=== PATIENT | female | born 1930 | race Caucasian/White ===

== ENCOUNTER 2016-11-01 16:30 | Inpatient (IN) | payer MEDICARE, OTHER ==
[~2016-11-01] VITALS: Ht 144.8 cm; Wt 40.5 kg
[2016-11-01 16:56] VITALS: BP 155/69; PULSE 72; RESP 16; TEMP 98.3; O2SAT 96
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
[2016-11-01 18:26] LABS: AUTOMATED NEUTROPHIL # 4.7 TH/MM3 (1.8-7.7); BASOPHIL % 0.5 % (0.0-2.0); EOSINOPHIL % 0.5 % (0.0-4.0); HEMATOCRIT 38.5 % (35.0-46.0); HEMO FLAGS DIFF FINAL; LYMPH % 27.8 % (9.0-44.0); MEAN CORPUSCULAR HEMOGLOBIN 27.7 PG (27.0-34.0); MONO % 6.3 % (0.0-8.0); NEUT % 64.9 % (16.0-70.0); PLATELET COUNT 190 TH/MM3 (150-450); RED BLOOD COUNT 4.58 MIL/MM3 (4.00-5.30); RED CELL DISTRIBUTION WIDTH 15.1 % (11.6-17.2); WHITE BLOOD COUNT 7.2 TH/MM3 (4.0-11.0)
[2016-11-01 18:50] LABS: ALKALINE PHOSPHATASE 135 U/L (45-117); ALT (GPT) 20 U/L (10-53); ANION GAP 8 MEQ/L (5-15); AST (GOT) 14 U/L (15-37); BICARBONATE 26.7 MEQ/L (21.0-32.0); BLOOD UREA NITROGEN 24 MG/DL (7-18); CHLORIDE 106 MEQ/L (98-107); GLOMERULAR FILTRATION RATE 85 ML/MIN (>89); POTASSIUM 3.7 MEQ/L (3.5-5.1); SODIUM (NA) 141 MEQ/L (136-145); TOTAL BILIRUBIN ADULT 0.2 MG/DL (0.2-1.0)
[2016-11-01 19:25] LABS: AMPHETAMINE, URINE NEG (NEG); BARBITURATES, URINE NEG (NEG); COCAINE, URINE NEG (NEG)
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
[2016-11-01] MEDS ORDERED: LEVO100T5 PO (21:39)
[2016-11-01] MEDS ORDERED: LORA-392 PO (21:39)
[2016-11-01] MEDS ORDERED: SENN8.6C PO (21:39)
[2016-11-01] MEDS ORDERED: NUED20CA PO (21:39)
[2016-11-01] MEDS ORDERED: SERO50TA PO (21:39)
[2016-11-01 22:00] VITALS: BP 140/75; PULSE 69; RESP 17; O2SAT 99
[2016-11-01 23:03] LABS: BLOOD, URINE NEG (NEG); COMMENT (UR) CULT NOT INDICATED; CULTURE IF INDICATED CULT NOT INDICATED; GLUCOSE,URINE NEG (NEG); HYALINE CAST, URINE 2 /lpf (RARE); KETONE, URINE NEG (NEG); MUCUS URINE FEW /lpf (OCC); NITRITE,URINE NEG (NEG); PH, URINE 5.5 (5.0-8.5); SQUAMOUS EPITHELIAL CELL URINE 1 /hpf (0-5); URINE COLOR YELLOW (YELLW/STRAW)
[2016-11-02 02:00] VITALS: BP 166/72; PULSE 63; RESP 18; O2SAT 95
[2016-11-02 06:00] VITALS: BP 170/90; PULSE 89; RESP 18; O2SAT 99
[2016-11-02 10:00] VITALS: BP 159/72; PULSE 67; RESP 18; O2SAT 98
[2016-11-02] MEDS ORDERED: ALUMINUM/MAGNESIUM/SIMETH 30 ML CUP PO PRN (14:15)
[2016-11-02] MEDS ORDERED: MAGNESIUM HYDROXIDE SUSP 30 ML CUP PO PRN (14:15)
[2016-11-02] MEDS ORDERED: ACETAMINOPHEN 325 MG TAB PO PRN (14:15)
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
[2016-11-02 15:21] VITALS: BP 158/78; PULSE 77; RESP 18; TEMP 97.7; O2SAT 98
[2016-11-02 16:30] VITALS: BP 147/99; PULSE 81; RESP 18; O2SAT 94
[2016-11-02 16:50] VITALS: BP 158/78; PULSE 77; RESP 18
[2016-11-02] MEDS ORDERED: LORazepam 2 MG/ML VIAL IM PRN (18:00)
[2016-11-02] MEDS ORDERED: LORazepam 1 MG TAB PO PRN (18:00)
[2016-11-03 05:28] VITALS: BP 111/60; PULSE 70; RESP 18; TEMP 98.5
[2016-11-03 09:26] LABS: ANION GAP 8 MEQ/L (5-15); BICARBONATE 27.6 MEQ/L (21.0-32.0); BLOOD UREA NITROGEN 16 MG/DL (7-18); CHLORIDE 103 MEQ/L (98-107); GLOMERULAR FILTRATION RATE 95 ML/MIN (>89); HDL CHOLESTEROL 84.8 MG/DL (40.0-60.0); LDL CHOLESTEROL 151 MG/DL (0-99); POTASSIUM 3.2 MEQ/L (3.5-5.1); SODIUM (NA) 139 MEQ/L (136-145)
--- NOTE | 2016-11-03 09:33 | HHI.HP ---
Provisional Diagnosis Admission Date Nov 02, 2016 at 14:09 [place] I. 1. Dementia with psychosis [place] II. Deferred [place] V. GAF is 30 presently Certification of Person's Competence To Provide Express and Informed Consent I have personally examined Emily Johnson , a person being served at [facility] on, Nov 03, 2016 09:18. Express and informed consent means consent voluntarily given in writing, by a competent person, after sufficient explanation and disclosure of the subject matter involved to enable the person to make a knowing and willful decision without any element of force, fraud, deceit, duress, or other form of constraint or coercion. This person is 18 years of age or older, is not now known to be incompetent to consent to treatment with a guardian advocate, and does not have a health care surrogate or proxy currently making medical treatment decisions. I have found this person to be one of the following: [] Competent to provide express and informed consent, as defined above, for voluntary admission to this facility and is competent to provide express and informed consent for treatment. He/she has the consistent capacity to make well reasoned, willful, and knowing decisions concerning his or her medical or mental health treatment. The person fully and consistently understands the purpose of the admission for examination/placement and is fully capable of personally exercising all rights assured under [place] [x] Incompetent to provide express and informed consent to voluntary admission, and this is incompetent to provide express and informed consent to treatment. The person must be transferred to involuntary status and a petition for a guardian advocate filed with the Circuit Court. [] Refusing to provide express and informed consent to voluntary admission but is competent to provide express and informed consent for treatment. The person must be discharged or transferred to involuntary status. Form shall be completed within 24 hours of a person's arrival at the receiving facility and filed in the clinical record of each person: 1. Admitted on a voluntary basis 2. Permitted to provide express and informed consent to his/her own treatment 3. Allowed to transfer from involuntary to voluntary status 4. Prior to permitting a person to consent to his or her own treatment after having been previously found incompetent to consent to treatment. History of Present Illness Capacity: Lacks Capacity HPI Ms. Johnson is an 86-year-old female, a resident of [facility], with a history of dementia who presents under a Hanson act from a Dr. Garcia alleging aggressive behavior. There is also notation that Seroquel was being tapered when this agitation occurred, but it is unclear why the Seroquel was being tapered. I reviewed the documentation accompanying the patient from her facility including several nursing notes alleging agitation. I also see that the facility has completed a discharge notice. Reviewing the electronic medical record, I see no prior psychiatric contact within our system. Patient seen and examined. Chart reviewed. Case discussed with nursing staff. Presently, the patient is calm and pleasant. She says "the doctors thought I should come here. Sometimes I get a little agitated but people talk too fast. I care for my mother. She is blind. I get a little annoyed when they push her , and you would too." Cognition is impaired, see full mental status testing below. Denies any issues with mood. Denies any audiovisual hallucinations. I inquire about suicidal or homicidal thoughts, but the patient does not seem to understand the question and just smiles blandly in reply. Patient apparently believed that she was in the ED last night and tells me today that she has been for 6 or 7 years to her and is still trying to conceive. Psychiatric interview is somewhat limited because of patient's degree of cognitive impairment. I am unable to obtain any meaningful past psychiatric, family or chemical dependency history because of patient's degree of cognitive impairment. Regarding her social history, the patient is likely an unreliable historian but tells me that she is high school educated. 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 She is presently to her Sonny. She says that she has no children. I did endeavor to obtain collateral from patient's , Sonny over the phone. I left a voicemail requesting a call back. I also endeavored to obtain collateral from Dr. Garcia to see why the doctor was tapering Seroquel even in the face of worsening agitation. I tried to call to the rehabilitation facility to see if they had any contact information for the doctor. After being transferred around without getting the needed information, I finally left a voicemail requesting they call me back with this information. Review of Systems ROS Limitations: Psychotic, Poor Historian Except as stated in HPI: all other systems reviewed are Neg Past Psych History Psychological trauma history Unable to obtain because of patient's degree of cognitive impairment Violence risk - others (6 mos) Indeterminate. Hanson act alleges agitation. Patient is presently calm and pleasant. Violence risk - self (6 mos) Lower imminent risk. No evidence of any suicidality at play here. Substance Abuse History Drugs/Alcohol past 12 months See above Past Family Social History Coded Allergies: Influenza Virus Vaccine (Verified Allergy, Unknown, 11/01/16) Penicillin (Verified Allergy, Unknown, 11/01/16) Past Medical History Notes from facility indicates a history of pseudobulbar affect, hypothyroidism and both hypo- and hypernatremia. Reported Medications Lorazepam (Ativan)0.5 Mg Tab0.5 Mg PO Q8H PRN (ANXIETY AND/OR AGITATION) Ref 0 11/01/16 Dextromethorphan HBr-Quinidine (Nuedexta 20-10 mg)1 Cap Cap1 Cap PO BID #60 CAP Ref 0 11/01/16 Quetiapine (Seroquel)50 Mg Tab50 Mg PO HS #30 TAB Ref 0 11/01/16 Sennosides (Senna)8.6 Mg Cap8.6 Mg PO HS Ref 0 11/01/16 Levothyroxine 100 Mcg Tco064 Mcg PO DAILY #30 TAB Ref 0 11/01/16 Current Medications Medications (Trade) Dose Ordered Sig/Tera Route Start Time Stop Time Status Last Admin (Tylenol) 650 mg Q4H PRN PO 11/02/16 14:15 (Milk Of Magnesia Liq) 30 ml DAILY PRN PO 11/02/16 14:15 (Mag-Al Plus Susp Liq) 30 ml Q6H PRN PO 11/02/16 14:15 (Ativan) 1 mg Q12H PRN PO 11/02/16 18:00 (Ativan Inj) 1 mg Q12H PRN IM 11/02/16 18:00 Family History See above Social History See above Patient's Strengths (min. 2) In a monitored setting. Verbally fluent. Physical Exam Physical examination completed by ED provider. On my examination today, patient appears to be somewhat thin but otherwise well-developed and in no acute physical distress. No hand tremor, no dystonia, no dyskinesia, no other motor abnormalities noted. Laboratories and vitals signs reviewed: Vital Signs Vital Signs Date Time Temp Pulse Resp B/P Pulse Ox O2 Delivery O2 Flow Rate FiO2 11/03/16 05:28 98.5 70 18 111/60 11/02/16 16:50 Room Air 11/02/16 16:30 94 Lab Results Item Value Date Time White Blood Count 7.2 TH/MM3 11/01/16 1805 Hemoglobin 12.7 GM/DL 11/01/16 180 Platelet Count 190 TH/MM3 11/01/16 1805 Sodium Level 141 MEQ/L 11/01/16 1805 Potassium Level 3.7 MEQ/L 11/01/16 1805 Chloride Level 106 MEQ/L 11/01/16 1805 Carbon Dioxide Level 26.7 MEQ/L 11/01/16 180 Blood Urea Nitrogen 24 MG/DL H 11/01/16 1805 Creatinine 0.66 MG/DL 11/01/16 1805 Random Glucose 95 MG/DL 11/01/16 1805 Aspartate Amino Transf (AST/SGOT) 14 U/L L 11/01/16 1805 Alanine Aminotransferase (ALT/SGPT) 20 U/L 11/01/16 1805 Alkaline Phosphatase 135 U/L H 11/01/16 1805 Urine toxicology negative. Urinalysis bland. Last Impressions Hand X-Ray 11/01/16 0000 Signed Impressions: Service Date/Time: Tuesday, November 01, 2016 19:35 - CONCLUSION: Degenerative changes, negative for acute fracture. Matt Eng MD FACR Mental Status Examination Patient is in hospital [facility]. She is somewhat disheveled but appears to be maintaining basic hygiene. She is awake and alert and oriented to person only. She believes that she is in [place] and believes that this is located in [place]. She is not sure of the date. She is only able to register 1 of 3 items. I give the patient a list including the word apple and she repeats this list back as "apple turnover." She is unable to name 2 items. She is unable to repeat a phrase. She cannot tell me who the president is. Her recall is 0 out of 3 at 3 minutes. No motor abnormalities noted. Speech is within normal limits for rate, tone and volume. Language and fund of knowledge seems reduced. Mood is fair and affect is full and reactive. Thought process tangential. Associations somewhat loose. Delusions related to possibility of present, and the patient apparently thought that she was last night. No other delusional material currently. Patient noncommittal regarding suicidal or homicidal ideation. Insight and judgment are presently poor. 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 Patient presents with cognitive impairment and delusional material, and I suspect that she is experiencing a dementia with psychosis. There is no evidence of UTI or other medical cause for patient's psychosis. Patient requires psychiatric hospitalization at this time for safety, observation and stabilization. Admit inpatient. Involuntary status. I've completed first opinion. Consult for second opinion. Request healthcare surrogate and guardian advocate. Check TFTs in am. Most recently, it appears patient was receiving Seroquel 50mg qHS, down from 50mg BID. Again, rationale for taper is unclear. I will continue Seroquel 50 mg at bedtime, but to consider selecting a different agent. Haldol as needed for agitation, Benadryl as needed for EPS, melatonin as needed for sleep. Continue Synthroid. Nuedexta is not stocked in our pharmacy, I will ask RN to have facility send over. PT eval with falls precautions. Vitals every shift. Counselor to see. Disposition planning. Estimated length of stay : Given the apparent need for new placement, optimistically 4-6 weeks. Discharge Planning Patient will apparently require new placement once psychiatrically stabilized. Request HC Surrog/Guard Advoc?: Yes Mayo Ambriz MD Nov 03, 2016 09:33
[2016-11-03] MEDS ORDERED: NUEDEXTA PO SCH (09:45)
[2016-11-03] MEDS ORDERED: diphenhydrAMINE HCL 50 MG/ML VIAL IM PRN (09:45)
[2016-11-03] MEDS ORDERED: POTASSIUM CHLORIDE 10 MEQ CONTROLLED RELEASE TAB PO ONE (09:45)
--- NOTE | 2016-11-03 13:26 | PD.CONS ---
Provisional Diagnosis Admission Date Nov 02, 2016 at 14:09 [place] I. 1. Dementia with psychosis [place] II. Deferred [place] V. GAF is 30 presently History of Present Illness Service Psychiatry Consult Requested By Attending Suhas. Reason for Consult Second opinion petition [place] act Primary Care Physician Unknown HPI Ms. Johnson is an 86-year-old female, a resident of [facility], with a history of dementia who presents under a Hanson act from a Dr. Garcia alleging aggressive behavior. There is also notation that Seroquel was being tapered when this agitation occurred, but it is unclear why the Seroquel was being tapered. I reviewed the documentation accompanying the patient from her facility including several nursing notes alleging agitation. I also see that the facility has completed a discharge notice. Reviewing the electronic medical record, I see no prior psychiatric contact within our system. Patient seen and examined. Chart reviewed. Case discussed with nursing staff. Presently, the patient is calm and pleasant. She says "the doctors thought I should come here. Sometimes I get a little agitated but people talk too fast. I care for my mother. She is blind. I get a little annoyed when they push her , and you would too." Cognition is impaired, see full mental status testing below. Denies any issues with mood. Denies any audiovisual hallucinations. I inquire about suicidal or homicidal thoughts, but the patient does not seem to understand the question and just smiles blandly in reply. Patient apparently believed that she was in the ED last night and tells me today that she has been for 6 or 7 years to her and is still trying to conceive. Psychiatric interview is somewhat limited because of patient's degree of cognitive impairment. I am unable to obtain any meaningful past psychiatric, family or chemical dependency history because of patient's degree of cognitive impairment. Regarding her social history, the patient is likely an unreliable historian but tells me that she is high school educated. 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 She is presently to her Sonny. She says that she has no children. I did endeavor to obtain collateral from patient's , Sonny over the phone. I left a voicemail requesting a call back. I also endeavored to obtain collateral from Dr. Garcia to see why the doctor was tapering Seroquel even in the face of worsening agitation. I tried to call to the rehabilitation facility to see if they had any contact information for the doctor. After being transferred around without getting the needed information, I finally left a voicemail requesting they call me back with this information. 11/03/16 Patient is a 86-year-old female admitted to Dr. Burnett service under the Hanson act. Patient seen on unit floor staff, patient diffusely confused to place time and situation though pleasant with no significant behavior problems at this time. Dr. Ambriz #first opinion petition supporting Hanson act. I agree. Patient does meet criteria for involuntary psychiatric hospitalization under the Hanson act. Thus I will cosign second opinion petition supporting Hanson act Past Family Social History Coded Allergies: Influenza Virus Vaccine (Verified Allergy, Unknown, 11/01/16) Penicillin (Verified Allergy, Unknown, 11/01/16) Reported Medications Lorazepam (Ativan)0.5 Mg Tab0.5 Mg PO Q8H PRN (ANXIETY AND/OR AGITATION) Ref 0 11/01/16 Dextromethorphan HBr-Quinidine (Nuedexta 20-10 mg)1 Cap Cap1 Cap PO BID #60 CAP Ref 0 11/01/16 Quetiapine (Seroquel)50 Mg Tab50 Mg PO HS #30 TAB Ref 0 11/01/16 Sennosides (Senna)8.6 Mg Cap8.6 Mg PO HS Ref 0 11/01/16 Levothyroxine 100 Mcg Sjq290 Mcg PO DAILY #30 TAB Ref 0 11/01/16 Current Medications Medications (Trade) Dose Ordered Sig/Tera Route Start Time Stop Time Status Last Admin (Tylenol) 650 mg Q4H PRN PO 11/02/16 14:15 (Milk Of Magnesia Liq) 30 ml DAILY PRN PO 11/02/16 14:15 (Mag-Al Plus Susp Liq) 30 ml Q6H PRN PO 11/02/16 14:15 (Synthroid) 100 mcg DAILY@0600 PO 11/04/16 06:00 (Radha-Colace) 2 tab DAILY PO 11/04/16 09:00 Patient Own Medication Nuedexta 20/10mg capsu... Q12HR PO 11/03/16 09:45 Hold (Haldol Inj) 1 mg Q8H PRN IM 11/03/16 09:45 (Melatonin) 5 mg HS PRN PO 11/03/16 09:45 (Benadryl) 25 mg Q6H PRN PO 11/03/16 09:45 (Benadryl Inj) 25 mg Q6H PRN IM 11/03/16 09:45 (SEROquel) 50 mg HS PO 11/03/16 21:00 Patient's Strengths (min. 2) In a monitored setting. Verbally fluent. Physical Exam Vital Signs Vital Signs Date Time Temp Pulse Resp B/P Pulse Ox O2 Delivery O2 Flow Rate FiO2 11/03/16 05:28 98.5 70 18 111/60 11/02/16 16:50 Room Air 11/02/16 16:30 94 Mental Status Examination Pleasantly diffusely confused white female Speech: Slow Orientation: Person Memory: Impaired (describe) Thought Process: Loose Association Thought Content: Other (diffusely confused) Language Czech Fund of Knowledge Poor Hallucination Type: None (denies) Attention and Concentration: Other (poor) Suicidal Ideation: No Previous Suicide Attempts: No Homicidal Ideation: No Previous Homicide Attempts: No (denies) Insight: Poor Judgment: Poor Affect: Other (decreased range intensity) Mood: Euthymic (to somewhat restricted) Motor Activity: Normal gait Assessment & Plan Problem List: (1) 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
[2016-11-03] MEDS: HALOPERIDOL LACTATE 5 MG/ML AMP IM PRN (13:45)
[2016-11-03 16:05] LABS: HEMOGLOBIN A1a 1.4 %; HEMOGLOBIN A1b 1.6 %; HEMOGLOBIN LA1C 1.7 %; HEMOGLOBIN P3 3.7 %
[2016-11-03 18:00] VITALS: BP 159/72; PULSE 90; RESP 18; TEMP 98.7; O2SAT 94
[2016-11-03] MEDS ORDERED: QUEtiapine FUMARATE 25 MG TAB PO SCH ×2 (21:00)
[2016-11-04 06:00] VITALS: BP 175/73; PULSE 63; RESP 18; TEMP 97.3
[2016-11-04] MEDS: LEVOTHYROXINE SODIUM 100 MCG TAB PO SCH (06:12)
[2016-11-04 08:48] LABS: POTASSIUM 3.8 MEQ/L (3.5-5.1)
[2016-11-04] MEDS: DOCUSATE SODIUM 50 MG/SENNA 8.6 MG TAB PO SCH (08:53)
[2016-11-04 09:03] LABS: FREE T4 0.91 NG/DL (0.76-1.46); MAGNESIUM 2.4 MG/DL (1.5-2.5)
--- NOTE | 2016-11-04 10:25 | HHI.PYPN ---
Subjective Remarks Patient seen and examined. Chart reviewed. I see that the patient refused her scheduled Seroquel last evening and received a Haldol PRN yesterday in the early afternoon for hitting at staff. Case discussed with RN who reports patient has been no behavioral problem so far today. On my examination today, patient is sitting calmly in the day area. She is doing a puzzle with a [employer]. She is oriented to person only. She has some mild cogwheeling but otherwise no evident side effects from medications. Review of Systems ROS Limitations: Poor Historian Except as stated in HPI: all other systems reviewed are Neg (cognitive impairment limits ROS) Objective Alert: Yes [place]: Person Mood: Calm Affect: Euthymic Memory Intact: Comment (remains impaired) Hallucinations: Other (None reported) Delusions: No Delusion Type: Other (None elicited today) Suicidal: Ideation (No SI) Homicidal: Ideation (No HI) Insight/Judgment Poor Remarks Except as above, no motoric abnormalities noted. Thought process disorganized consistent with dementia. Grooming and hygiene fair but requiring some staff assist. Labs Test 11/04/16 07:43 Potassium Level 3.8 MEQ/L Magnesium Level 2.4 MG/DL Free Thyroxine 0.91 NG/DL Thyroid Stimulating Hormone 12.600 uIU/ML 3rd Gen Labs reviewed. TSH is elevated but free T4 is within normal limits. Potassium and magnesium level are within normal limits. Vitals/IOs Vital Signs Date Time Temp Pulse Resp B/P Pulse Ox O2 Delivery O2 Flow Rate FiO2 11/04/16 06:00 97.3 63 18 175/73 11/03/16 18:00 94 11/02/16 16:50 Room Air Intake and Output 11/03/16 11/03/16 11/04/16 08:00 16:00 00:00 Intake Total 0 ml 240 ml 360 ml Balance 0 ml 240 ml 360 ml Assessment & Plan Problem List: (1) Senile dementia with psychosis ICD Code: F02.81 Assessment & Plan Discontinue Seroquel and replace with Haldol 0.5 mg twice daily PO/IM. Patient has Benadryl available as needed if she should experience significant EPS. Continue Synthroid as ordered as free T4 is within normal limits. Continue to monitor on the inpatient unit. Continue other medications and care as ordered. Justification for Cont. Inpt. Some impairment in self-care. Impairment in reality construction as a consequence of her dementia. Medication changes in process. High risk for decompensation in a less restrictive environment. Discharge Planning Patient will require a new placement. Request HC Surrog/Guard Advoc?: Yes Mayo Ambriz MD Nov 04, 2016 10:25
[2016-11-04] MEDS ORDERED: HALOPERIDOL LACTATE 5 MG/ML AMP IM PRN (10:30)
[2016-11-04 19:22] VITALS: BP 153/71; PULSE 72; RESP 16; TEMP 98.2
[2016-11-04] MEDS: HALOPERIDOL 0.5 MG TAB PO SCH (21:24)
[2016-11-04] MEDS: MELATONIN 5 MG TAB PO PRN (21:24)
[2016-11-04] MEDS: diphenhydrAMINE HCL 25 MG CAP PO PRN (21:24)
[2016-11-05] MEDS: LEVOTHYROXINE SODIUM 100 MCG TAB PO SCH ×2 (06:00→06:01)
[2016-11-05 06:14] VITALS: BP 167/69; PULSE 67; RESP 17; TEMP 97.6; O2SAT 96
[2016-11-05] MEDS: DOCUSATE SODIUM 50 MG/SENNA 8.6 MG TAB PO SCH (09:55)
[2016-11-05] MEDS: HALOPERIDOL 0.5 MG TAB PO SCH ×2 (09:55→21:00)
--- NOTE | 2016-11-05 13:45 | HHI.PYPN ---
Subjective Remarks Patient seen and examined. Chart reviewed. Case discussed with nursing staff who reports patient has continued to articulate delusions of needing to care for her mother. The patient repeats some of this material to me and also mentions something about babies. She remains quite confused and is oriented to person only. Affect seems euthymic. No evident side effects from medications. Review of Systems ROS Limitations: Poor Historian Except as stated in HPI: all other systems reviewed are Neg (ROS limited because of cognitive impairment) Objective Alert: Yes [place]: Person (person only) Mood: Calm Affect: Euthymic Memory Intact: Comment (markedly impaired) Hallucinations: Other (None reported) Delusions: Yes Delusion Type: Other (as noted above) Suicidal: Ideation (No SI) Homicidal: Ideation (No HI) Insight/Judgment Poor Remarks No abnormal motor movements noted. Thought process disorganized consistent with dementia diagnosis. Speech rambling. Requires assistance with grooming and hygiene. Labs Labs reviewed. Vitals/IOs Vital Signs Date Time Temp Pulse Resp B/P Pulse Ox O2 Delivery O2 Flow Rate FiO2 11/05/16 06:14 97.6 67 17 167/69 96 11/02/16 16:50 Room Air Intake and Output 11/04/16 11/04/16 11/05/16 08:00 16:00 00:00 Intake Total 420 ml Balance 420 ml Assessment & Plan Problem List: (1) Senile dementia with psychosis ICD Code: F02.81 (2) HTN (hypertension) ICD Code: I10 Assessment & Plan Titrate Haldol to 0.75 mg twice daily to target psychosis. Blood pressures remain fairly consistently elevated; I will add lisinopril 5 mg daily with blood pressure parameters. Continue to monitor on the inpatient psychiatric unit. Continue other medications include care as ordered. Justification for Cont. Inpt. Impairment in reality construction. Medication changes in process. Discharge Planning Counselor informs me that there is a possibility that the patient may be accepted back to her originating facility even though discharge paperwork was completed. Patient will require placement regardless, either at her existing facility or a new facility. Request HC Surrog/Guard Advoc?: Yes Mayo Ambriz MD Nov 05, 2016 13:45
[2016-11-05] MEDS ORDERED: HALOPERIDOL LACTATE 5 MG/ML AMP IM PRN (16:30)
[2016-11-05 18:00] VITALS: BP 152/72; PULSE 73; RESP 18; TEMP 97.9; O2SAT 97
[2016-11-06] MEDS: LEVOTHYROXINE SODIUM 100 MCG TAB PO SCH (06:00)
[2016-11-06] MEDS: LISINOPRIL 5 MG TAB PO SCH (09:04)
[2016-11-06] MEDS: HALOPERIDOL 0.5 MG TAB PO SCH ×2 (09:05→21:46)
[2016-11-06] MEDS: PILL SPLITTER OTHER PRN (09:05)
[2016-11-06] MEDS: DOCUSATE SODIUM 50 MG/SENNA 8.6 MG TAB PO SCH (09:05)
--- NOTE | 2016-11-06 18:25 | HHI.PYPN ---
Subjective Remarks Pt seen and discussed with staff. She has been irritable today. She states that she is looking for her father and gives MD the middle finger. She is compliant with medication. No SI/HI Objective Alert: Yes [place]: Person (person only) Mood: Angry, Calm Affect: Other (irritable) Memory Intact: Comment (markedly impaired) Hallucinations: Other (None reported) Delusions: Yes Delusion Type: Other (belives father is alive) Suicidal: Ideation (No SI) Homicidal: Ideation (No HI) Insight/Judgment poor Vitals/IOs Vital Signs Date Time Temp Pulse Resp B/P Pulse Ox O2 Delivery O2 Flow Rate FiO2 11/05/16 18:00 97.9 73 18 152/72 97 11/02/16 16:50 Room Air Intake and Output 11/05/16 11/05/16 11/06/16 08:00 16:00 00:00 Intake Total 0 ml 960 ml 480 ml Output Total 1 ml Balance -1 ml 960 ml 480 ml Assessment & Plan Problem List: (1) Senile dementia with psychosis ICD Code: F02.81 Assessment & Plan Continue current tx plan. Estimated LOS: days Justification for Cont. Inpt. impairments in reality construction, medication adjustments Request HC Surrog/Guard Advoc?: Yes Liz Rosado MD Nov 06, 2016 18:24
[2016-11-06 20:00] VITALS: BP 136/97; PULSE 71; TEMP 98.2; O2SAT 97
[2016-11-07 05:35] VITALS: BP 129/67; PULSE 69; RESP 16; TEMP 98.2
[2016-11-07] MEDS: LEVOTHYROXINE SODIUM 100 MCG TAB PO SCH ×2 (05:56→06:00)
[2016-11-07] MEDS: LISINOPRIL 5 MG TAB PO SCH (09:00)
[2016-11-07] MEDS: DOCUSATE SODIUM 50 MG/SENNA 8.6 MG TAB PO SCH (09:34)
[2016-11-07] MEDS: HALOPERIDOL 0.5 MG TAB PO SCH ×2 (09:34→21:00)
[2016-11-07] MEDS: PILL SPLITTER OTHER PRN (09:38)
[2016-11-07 18:00] VITALS: BP 112/62; PULSE 80; RESP 15; TEMP 98.6; O2SAT 96
--- NOTE | 2016-11-07 20:12 | HHI.PYPN ---
Subjective Remarks Pt seen and discussed with staff. Pt has been less agitated and irritable today. Cooperative with care. No medication side effects. Objective Alert: Yes [place]: Person (person only) Mood: Calm Affect: Restricted Memory Intact: Comment (markedly impaired) Hallucinations: Other (None reported) Delusions: Yes Delusion Type: Other (belives father is alive) Suicidal: Ideation (No SI) Homicidal: Ideation (No HI) Insight/Judgment poor Vitals/IOs Vital Signs Date Time Temp Pulse Resp B/P Pulse Ox O2 Delivery O2 Flow Rate FiO2 11/07/16 18:00 98.6 80 15 112/62 96 Intake and Output 11/06/16 11/06/16 11/07/16 08:00 16:00 00:00 Intake Total 480 ml Balance 480 ml Assessment & Plan Problem List: (1) Senile dementia with psychosis ICD Code: F02.81 Assessment & Plan Continue current tx plan. Estimated LOS: days Justification for Cont. Inpt. risk of decompensation Request HC Surrog/Guard Advoc?: Yes Liz Rosado MD Nov 07, 2016 20:12
[2016-11-08 05:30] VITALS: BP 157/67; PULSE 71; RESP 18; TEMP 97.3
[2016-11-08] MEDS: LEVOTHYROXINE SODIUM 100 MCG TAB PO SCH (06:00)
--- NOTE | 2016-11-08 08:20 | HHI.PYPN ---
Subjective Remarks Patient seen and examined. Chart reviewed. Case discussed with nursing staff who reports patient refused her Synthroid this morning but otherwise has been no behavioral problem. She has articulated some delusional beliefs about babies per nursing staff. On my examination today, the patient is sitting in the day area. She is calm and pleasant but confused. She is oriented to person only. She tells me that she had a "rough night" saying that she had to take care of her 5 daughters. No evident side effects from medications. Review of Systems ROS Limitations: Poor Historian Except as stated in HPI: all other systems reviewed are Neg (cognitive impairment limits ROS) Objective Alert: Yes [place]: Person Mood: Calm Affect: Blunted Memory Intact: Comment (remains impaired) Hallucinations: Other (None reported) Delusions: Yes Delusion Type: Other (regarding children as noted above) Suicidal: Ideation (no SI voiced) Homicidal: Ideation (no HI voiced) Insight/Judgment Poor Remarks No abnormal motor movements noted. Labs Labs reviewed. 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 Continue other psychotropics as ordered. Continue to monitor on the inpatient unit. Continue other medications and care as ordered. Justification for Cont. Inpt. Impairment in reality construction. High risk for decompensation in a less restrictive environment. Discharge Planning Possible return to referring facility Request HC Surrog/Guard Advoc?: Yes Mayo Ambriz MD Nov 08, 2016 08:20
[2016-11-08] MEDS: LISINOPRIL 5 MG TAB PO SCH (09:34)
[2016-11-08] MEDS: HALOPERIDOL 0.5 MG TAB PO SCH ×2 (09:34→20:45)
[2016-11-08] MEDS: DOCUSATE SODIUM 50 MG/SENNA 8.6 MG TAB PO SCH (09:34)
[2016-11-08] MEDS ORDERED: HALOPERIDOL 0.5 MG TAB PO ONE (13:30)
[2016-11-08 18:00] VITALS: BP 118/66; PULSE 82; RESP 18; TEMP 97.8; O2SAT 97
[2016-11-09] MEDS: LEVOTHYROXINE SODIUM 100 MCG TAB PO SCH (05:10)
[2016-11-09 05:39] VITALS: BP 111/59; PULSE 67; RESP 16; TEMP 97.6; O2SAT 95
[2016-11-09] MEDS: DOCUSATE SODIUM 50 MG/SENNA 8.6 MG TAB PO SCH (08:58)
[2016-11-09] MEDS: HALOPERIDOL 0.5 MG TAB PO SCH ×3 (08:58→20:51)
[2016-11-09] MEDS: LISINOPRIL 5 MG TAB PO SCH (08:59)
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
[2016-11-09] MEDS: HALOPERIDOL LACTATE 5 MG/ML AMP IM PRN (17:12)
[2016-11-09 18:03] VITALS: BP 116/68; PULSE 83; RESP 18; TEMP 99.1
[2016-11-10 05:15] VITALS: BP 155/70; PULSE 80; RESP 16; TEMP 98.5; O2SAT 95
[2016-11-10] MEDS: LEVOTHYROXINE SODIUM 100 MCG TAB PO SCH (05:24)
[2016-11-10] MEDS: LISINOPRIL 5 MG TAB PO SCH (08:03)
[2016-11-10] MEDS: HALOPERIDOL 0.5 MG TAB PO SCH ×4 (08:03→20:17)
[2016-11-10] MEDS: DOCUSATE SODIUM 50 MG/SENNA 8.6 MG TAB PO SCH (08:03)
--- NOTE | 2016-11-10 08:55 | HHI.PYPN ---
Subjective Remarks Patient seen and examined. Chart reviewed. Case discussed with nursing staff who reports the patient had an episode of agitation associated with yesterday in the late afternoon and received Haldol PRN at that time. Patient reportedly had no further behavioral disturbance after that. On my examination today, the patient is sitting in the day area. She is eating her breakfast area and she is calm and pleasant. She exhibits utilization behavior. She is at her confused baseline. No evident side effects from medications. Review of Systems ROS Limitations: Poor Historian Except as stated in HPI: all other systems reviewed are Neg (cognitive impairment limits ROS) Objective Alert: Yes [place]: Person Mood: Calm Affect: Flat Memory Intact: Comment (remains severely impaired) Hallucinations: Other (no AVH) Delusions: No Delusion Type: Other (no delusions) Suicidal: Ideation (no SI) Homicidal: Ideation (no HI) Insight/Judgment Poor Remarks No abnormal motor movements noted. Labs Labs reviewed. 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 Continue other psychotropics as ordered. Continue to monitor on the inpatient unit. Continue other medications care as ordered. Justification for Cont. Inpt. Impairment in reality construction. Impairment in self-care. Medication changes in process. High risk for decompensation in a less restrictive environment. Discharge Planning Placement Request HC Surrog/Guard Advoc?: Yes Mayo Ambriz MD Nov 10, 2016 08:55
[2016-11-10 18:00] VITALS: BP 111/58; PULSE 91; RESP 16; TEMP 98.5; O2SAT 98
[2016-11-11] MEDS: LEVOTHYROXINE SODIUM 100 MCG TAB PO SCH (05:31)
[2016-11-11 05:49] VITALS: BP 143/65; PULSE 74; RESP 16; TEMP 98; O2SAT 99
[2016-11-11] MEDS: HALOPERIDOL 0.5 MG TAB PO SCH (09:34)
[2016-11-11] MEDS: DOCUSATE SODIUM 50 MG/SENNA 8.6 MG TAB PO SCH (09:34)
[2016-11-11] MEDS: LISINOPRIL 5 MG TAB PO SCH (09:34)
--- NOTE | 2016-11-11 10:39 | HHI.PYPN ---
Subjective Remarks Patient seen and case discussed with nursing staff. Chart reviewed. Oral intake and sleep are fair. Case discussed with nursing staff. Patient was apparently verbally but not physically aggressive with staff overnight. For me today, the patient is calm and pleasant. She offers no particular complaints. No evidence side effects from medications. Review of Systems ROS Limitations: Poor Historian Except as stated in HPI: all other systems reviewed are Neg Objective Alert: Yes [place]: Person Mood: Calm Affect: Flat Memory Intact: Comment (impaired) Hallucinations: Other (none) Delusions: No Delusion Type: Other (none) Suicidal: Ideation (no SI) Homicidal: Ideation (no HI) Insight/Judgment Poor Remarks No motor abnormalities noted. Labs Labs reviewed. 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 Continue to monitor on the inpatient unit. Continue other medications and care as ordered. Patient's case was presented to the Hanson act court and was placed in continuance for 4 weeks by the lockstitch sleeve maker. Justification for Cont. Inpt. Impairment in self-care. Impairment in reality construction as a consequence for dementia. High risk for decompensation in a less restrictive setting pending psychiatric stabilization. Discharge Planning Return to facility (or find new placement if necessary) once psychiatrically stabilized. Request HC Surrog/Guard Advoc?: Yes Mayo Ambriz MD Nov 11, 2016 10:39
[2016-11-11] MEDS: HALOPERIDOL 1 MG TAB PO SCH ×2 (13:18→20:14)
[2016-11-11 19:32] VITALS: PULSE 92; RESP 16; TEMP 97.9; O2SAT 98
[2016-11-12] MEDS: MELATONIN 5 MG TAB PO PRN (00:59)
[2016-11-12] MEDS: diphenhydrAMINE HCL 25 MG CAP PO PRN (00:59)
[2016-11-12] MEDS: LEVOTHYROXINE SODIUM 100 MCG TAB PO SCH (05:51)
[2016-11-12 06:25] VITALS: BP 110/54; PULSE 66; TEMP 97.1; O2SAT 99
[2016-11-12] MEDS: LISINOPRIL 5 MG TAB PO SCH (09:00)
--- NOTE | 2016-11-12 09:00 | HHI.PYPN ---
Subjective Remarks Patient seen in day room with nurse Hilary, chart reviewed, patient calm pleasantly confused. No behavioral problems noted at this time. Compliant medications Review of Systems Except as stated in HPI: all other systems reviewed are Neg Objective Alert: Yes [place]: Person Mood: Calm Affect: Flat Memory Intact: Comment (impaired) Hallucinations: Other (none) Delusions: No Delusion Type: Other (none) Suicidal: Ideation (no SI) Homicidal: Ideation (no HI) Insight/Judgment Very poor Vitals/IOs Vital Signs Date Time Temp Pulse Resp B/P Pulse Ox O2 Delivery O2 Flow Rate FiO2 11/12/16 06:25 97.1 66 110/54 99 11/11/16 19:32 16 Intake and Output 11/11/16 11/11/16 11/12/16 08:00 16:00 00:00 Intake Total 0 ml 480 ml 1080 ml Balance 0 ml 480 ml 1080 ml Assessment & Plan Problem List: (1) 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 Compliant medications Justification for Cont. Inpt. At this time patient will decompensate placed in a lower level of care Request HC Surrog/Guard Advoc?: Yes Corey Weiss MD Nov 12, 2016 09:00
[2016-11-12] MEDS: DOCUSATE SODIUM 50 MG/SENNA 8.6 MG TAB PO SCH (09:37)
[2016-11-12] MEDS: HALOPERIDOL 0.5 MG TAB PO SCH (09:38)
[2016-11-12] MEDS ORDERED: LISI-519 PO (11:40)
[2016-11-12] MEDS ORDERED: HALO1TAB PO (11:40)
[2016-11-12] MEDS ORDERED: HALO0.5T PO (11:40)
[2016-11-12] MEDS ORDERED: SENN1TAB PO (11:40)
[2016-11-12] MEDS ORDERED: LEVO.1 PO (11:40)
--- NOTE | 2016-11-12 11:45 | HHI.DS ---
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 Johnson is an 86-year-old female, a resident of [facility], with a history of dementia who presents under a Hanson act from a Dr. Garcia alleging aggressive behavior. There is also notation that Seroquel was being tapered when this agitation occurred, but it is unclear why the Seroquel was being tapered. I reviewed the documentation accompanying the patient from her facility including several nursing notes alleging agitation. I also see that the facility has completed a discharge notice. Reviewing the electronic medical record, I see no prior psychiatric contact within our system. Patient seen and examined. Chart reviewed. Case discussed with nursing staff. Presently, the patient is calm and pleasant. She says "the doctors thought I should come here. Sometimes I get a little agitated but people talk too fast. I care for my mother. She is blind. I get a little annoyed when they push her , and you would too." Cognition is impaired, see full mental status testing below. Denies any issues with mood. Denies any audiovisual hallucinations. I inquire about suicidal or homicidal thoughts, but the patient does not seem to understand the question and just smiles blandly in reply. Patient apparently believed that she was in the ED last night and tells me today that she has been for 6 or 7 years to her and is still trying to conceive. Psychiatric interview is somewhat limited because of patient's degree of cognitive impairment. I am unable to obtain any meaningful past psychiatric, family or chemical dependency history because of patient's degree of cognitive impairment. Regarding her social history, the patient is likely an unreliable historian but tells me that she is high school educated. 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 She is presently to her Sonny. She says that she has no children. I did endeavor to obtain collateral from patient's , Sonny over the phone. I left a voicemail requesting a call back. I also endeavored to obtain collateral from Dr. Garcia to see why the doctor was tapering Seroquel even in the face of worsening agitation. I tried to call to the rehabilitation facility to see if they had any contact information for the doctor. After being transferred around without getting the needed information, I finally left a voicemail requesting they call me back with this information. 11/03/16 Patient is a 86-year-old female admitted to Dr. Burnett service under the Hanson act. Patient seen on unit floor staff, patient diffusely confused to place time and situation though pleasant with no significant behavior problems at this time. Dr. Ambriz #first opinion petition supporting Hanson act. I agree. Patient does meet criteria for involuntary psychiatric hospitalization under the Hanson act. Thus I will cosign second opinion petition supporting Hanson act Tobacco Use In Past 30 Days: Cognitive Impairment Alcohol Use: Never Hospital Course Patient hospital courses essentially unremarkable, patient show compliance with her medications. Becoming more focused, no behavioral problems recently. Patient seen by me today calm cooperative and pleasant. Appears is a bed available for her today at [facility] and rehabilitation. At this time I feel patient has reached her maximum benefit of this hospitalization. Thus patient to be discharged today to that facility, Rx 1 month, follow-up services through that facility Results Blood Pressure 110 / 54 Vital Signs Date Time Temp Pulse Resp B/P Pulse Ox O2 Delivery O2 Flow Rate FiO2 11/12/16 06:25 97.1 66 110/54 99 11/11/16 19:32 16 And toxicology negative Summary of Procedures None done Imaging Last Impressions Hand X-Ray 11/01/16 0000 Signed Impressions: Service Date/Time: Tuesday, November 01, 2016 19:35 - CONCLUSION: Degenerative changes, negative for acute fracture. Matt Eng MD FACR Pending results at discharge: No Medications # of Antipsychotic meds at D/C: 1 Approp Antipsych med options 1 - Minimum of three failed multiple trials of monotherapy. 2 - Documented plan to taper to monotherapy due to previous use of multiple meds OR cross-taper in progress at D/C. 3 - Documentation of augmentation of Clozapine. 4 - Justification other than those listed in allowable values 1-3, document here : Discharge Discharge Date: Nov 12, 2016 Discharge Diagnosis: (1) Senile dementia with psychosis Diagnosis: Principal ICD Code: F02.81 Mental Status Exam at Disch Alert pleasant diffusely confused white female appearing her stated age sitting quietly in day room continues normal active, mood is euthymic to somewhat restricted with decreased range intense of her affect. Speech rate and rhythm is slow markedly disorganized tangential and circumstantial. There are no auditory or visual hallucinations noted. No delusions. Insight and judgment is. Cognition is impaired Pt Condition on Discharge: Stable Discharge Disposition: Discharge to SNF Discharge Instructions Diet Instructions: As Tolerated, No Restrictions Activities you can perform: Regular-No Restrictions Scheduled Appointment: [facility] and rehabilitation Discharge Time > 30 minutes Discharge/Advance Care Plan Health Problems: (1) Senile dementia with psychosis Goals to promote your health * To prevent worsening of your condition and complications * To maintain your health at the optimal level Directions to meet your goals Take your medications as prescribed Follow your dietary instruction Follow activity as directed Keep your appointments as scheduled Take your immunizations and boosters as scheduled If your symptoms worsen call your PCP, if no PCP go to Urgent Care Center or Emergency Room For 14/02 questions related to your inpatient stay or results of tests pending at discharge, please contact Dr. Corey Weiss at Smoking is Dangerous to Your Health. Avoid second hand smoking Corey Weiss MD Nov 12, 2016 11:45
[2016-11-12] MEDS: HALOPERIDOL 1 MG TAB PO SCH (13:22)
== END 2016-11-12 16:15 | DRG 57 ==
LOC: NEDAMB 16:30 → NEDA 11-02 14:09 → H250 11-02 16:24
PROVIDERS: ADMIT Psychiatry & Neurology Psychiatry; ATTEND Psychiatry & Neurology Psychiatry
DX: G30.9 Alzheimer's disease, unspecified (principal); F02.81 Dementia in other diseases classified elsewhere, unspecified severity, with behavioral disturbance; E03.9 Hypothyroidism, unspecified
CPT/HCPCS: 73130; 80048; 80053; 80061; 80307; 81001; 83036; 83735; 84132; 84439; 84443; 85025; 99284; J1630

== ENCOUNTER 2016-12-23 13:40 | Inpatient (IN) | payer MEDICARE, OTHER ==
[~2016-12-23] VITALS: Ht 147.3 cm; Wt 35.9 kg
[~2016-12-23 13:40] MED LIST: HALO0.5T PO; HALO1TAB PO; LEVO.1 PO; LEVO100T5 PO; LISI-519 PO; LORA-392 PO; NUED20CA PO; SENN1TAB PO; SENN8.6C PO; SERO50TA PO
--- NOTE | 2016-12-23 14:06 | PD ---
HPI Chief Complaint: psychiatric evaluation Time Seen by Provider: 14:06 Travel History International Travel<30 days: No Contact w/Intl Traveler<30days: No History of Present Illness HPI Patient was sent from [facility] for psychiatric evaluation after becoming more violent having more behavioral disturbances at the facility. Patient has a history of dementia with behavioral disturbances, hypothyroidism, hyper osmolarity and hypernatremia, difficulty walking, constipation, psychosis, and pseudobulbar affect per records sent with patient. Patient denies any complaints or concerns. Patient does not know why she is here. Patient denies any chest pain, shortness of breath, abdominal pain, fevers, or other concerns. PFSH Past Medical History Cancer: No Cardiovascular Problems: No Dementia: Yes Diabetes: No Genitourinary: No Headaches: No Musculoskeletal: No Neurologic: No Psychiatric: Yes (Senile Dementia with Psychosis) Reproductive: No Respiratory: No Seizures: No Thyroid Disease: Yes (HYPOTHYROIDISM) Social History Alcohol Use: No Tobacco Use: No Substance Use: No Allergies-Medications (Allergen,Severity, Reaction): Coded Allergies: Influenza Virus Vaccine (Verified Allergy, Unknown, 12/23/16) Penicillin (Verified Allergy, Unknown, 12/23/16) Reported Meds & Prescriptions Reported Meds & Active Scripts Active Senna Plus 8.6-50 mg (Sennosides-Docusate Sodium) 1 Tab Tab 2 Tab PO 2 PO DAILY Lisinopril 5 Mg Tab 5 Mg PO DAILY Reported Tylenol (Acetaminophen) 325 Mg Tab 650 Mg PO Q4H PRN Clonazepam 0.5 Mg Tab 0.5 Mg PO BID Vitamin C (Ascorbic Acid) 500 Mg Cap 500 Mg PO BID Seroquel (Quetiapine Fumarate) 25 Mg Tab 12.5 Mg PO BID Seroquel (Quetiapine Fumarate) 50 Mg Tab 50 Mg PO HS Levothyroxine (Levothyroxine Sodium) 100 Mcg Tab 100 Mcg PO DAILY Review of Systems ROS Limitations: Poor Historian Except as stated in HPI: all other systems reviewed are Neg Physical Exam Exam Limitations: Poor Historian Narrative GENERAL: Well-developed, well nourished, in no acute distress, and non-ill appearing. SKIN: Focused skin assessment warm and dry. HEAD: Atraumatic. Normocephalic. EYES: Pupils equal and round. EOMI. No scleral icterus. No injection or drainage. ENT: No nasal bleeding or discharge. Mucous membranes pink and moist. NECK: Trachea midline. Supple. No nuclear rigidity. CARDIOVASCULAR: Regular rate and rhythm. No murmur appreciated. RESPIRATORY: No accessory muscle use. No respiratory distress. Clear to auscultation. Breath sounds equal bilaterally. GASTROINTESTINAL: Abdomen soft, non-tender, nondistended. Hepatic and splenic margins not palpable. No pulsatile mass. MUSCULOSKELETAL: No obvious deformities. No clubbing. No cyanosis. No edema. Patient moving all extremities. NEUROLOGICAL: Awake and alert. No obvious cranial nerve deficits. Motor grossly within normal limits. Normal speech. Data Data Last Documented VS Vital Signs Date Time Temp Pulse Resp B/P Pulse Ox O2 Delivery O2 Flow Rate FiO2 12/23/16 14:20 97.3 90 14 174/81 98 Room Air Orders Complete Blood Count With Diff (12/23/16 14:06) Comprehensive Metabolic Panel (12/23/16 14:06) Urinalysis - C+S If Indicated (12/23/16 14:06) Psych Screen (12/23/16 14:06) Drug Screen, Random Urine (12/23/16 14:06) Clonazepam (Klonopin) (12/23/16 14:45) Labs Laboratory Tests Test 12/23/16 12/23/16 14:45 14:50 White Blood Count 6.8 TH/MM3 Red Blood Count 4.46 MIL/MM3 Hemoglobin 12.5 GM/DL Hematocrit 38.1 % Mean Corpuscular Volume 85.5 FL Mean Corpuscular Hemoglobin 28.1 PG Mean Corpuscular Hemoglobin 32.9 % Concent Red Cell Distribution Width 14.5 % Platelet Count 190 TH/MM3 Mean Platelet Volume 8.3 FL Neutrophils (%) (Auto) 63.1 % Lymphocytes (%) (Auto) 29.4 % Monocytes (%) (Auto) 5.6 % Eosinophils (%) (Auto) 1.3 % Basophils (%) (Auto) 0.6 % Neutrophils # (Auto) 4.3 TH/MM3 Lymphocytes # (Auto) 2.0 TH/MM3 Monocytes # (Auto) 0.4 TH/MM3 Eosinophils # (Auto) 0.1 TH/MM3 Basophils # (Auto) 0.0 TH/MM3 CBC Comment DIFF FINAL Differential Comment Sodium Level 142 MEQ/L Potassium Level 4.0 MEQ/L Chloride Level 105 MEQ/L Carbon Dioxide Level 29.3 MEQ/L Anion Gap 8 MEQ/L Blood Urea Nitrogen 18 MG/DL Creatinine 0.77 MG/DL Estimat Glomerular Filtration 71 ML/MIN Rate Random Glucose 83 MG/DL Calcium Level 9.1 MG/DL Total Bilirubin 0.2 MG/DL Aspartate Amino Transf 18 U/L (AST/SGOT) Alanine Aminotransferase 21 U/L (ALT/SGPT) Alkaline Phosphatase 123 U/L Total Protein 7.3 GM/DL Albumin 3.5 GM/DL Urine Color YELLOW Urine Turbidity CLEAR Urine pH 7.0 Urine Specific [place]ears 1.012 Urine Protein NEG mg/dL Urine Glucose (UA) NEG mg/dL Urine Ketones NEG mg/dL Urine Occult Blood NEG Urine Nitrite NEG Urine Bilirubin NEG Urine Urobilinogen LESS THAN 2.0 MG/DL Urine Leukocyte Esterase NEG Urine RBC LESS THAN 1 /hpf Urine WBC LESS THAN 1 /hpf Urine Squamous Epithelial <1 /hpf Cells Urine Mucus FEW /lpf Microscopic Urinalysis Comment CULT NOT INDICATED Urine Opiates Screen NEG Urine Barbiturates Screen NEG Urine Amphetamines Screen NEG Urine Benzodiazepines Screen NEG Urine Cocaine Screen NEG Urine Cannabinoids Screen NEG MDM Medical Decision Making Medical Screen Exam Complete: Yes Emergency Medical Condition: Yes Differential Diagnosis Dementia, electrolyte abnormality, anemia, UTI, other Narrative Course Patient was seen and examined. Labs were obtained and reviewed. Patient medically cleared for further treatment and evaluation by psych. Final disposition per psych. Diagnosis Primary Impression: Dementia Qualified Code: F03.91 - Dementia with behavioral disturbance, unspecified dementia type Condition: Stable Neri Moreno Dec 23, 2016 14:06
[2016-12-23 14:20] VITALS: BP 174/81; PULSE 90; RESP 14; TEMP 97.3; O2SAT 98
[2016-12-23] MEDS ORDERED: ASCO500C PO (14:28)
[2016-12-23] MEDS ORDERED: SERO25TA PO (14:28)
[2016-12-23] MEDS ORDERED: TYLE325T PO (14:28)
[2016-12-23] MEDS ORDERED: CLON0.5T PO (14:28)
[2016-12-23 14:40] VITALS: BP 164/79; PULSE 94; RESP 16; O2SAT 99
[2016-12-23] MEDS ORDERED: clonazePAM 0.5 MG TAB PO ONE (14:45)
[2016-12-23 15:23] LABS: AUTOMATED NEUTROPHIL # 4.3 TH/MM3 (1.8-7.7); BASOPHIL % 0.6 % (0.0-2.0); EOSINOPHIL # 0.1 TH/MM3 (0-0.4); EOSINOPHIL % 1.3 % (0.0-4.0); HEMATOCRIT 38.1 % (35.0-46.0); HEMO FLAGS DIFF FINAL; LYMPH % 29.4 % (9.0-44.0); MEAN CELL VOLUME 85.5 FL (80.0-100.0); MEAN CORPUSCULAR HEMOGLOBIN 28.1 PG (27.0-34.0); MEAN CORPUSCULAR HGB CONC 32.9 % (32.0-36.0); MONO % 5.6 % (0.0-8.0); NEUT % 63.1 % (16.0-70.0); PLATELET COUNT 190 TH/MM3 (150-450); RED BLOOD COUNT 4.46 MIL/MM3 (4.00-5.30); RED CELL DISTRIBUTION WIDTH 14.5 % (11.6-17.2); WHITE BLOOD COUNT 6.8 TH/MM3 (4.0-11.0)
[2016-12-23 15:25] LABS: BLOOD, URINE NEG (NEG); COMMENT (UR) CULT NOT INDICATED; CULTURE IF INDICATED CULT NOT INDICATED; GLUCOSE,URINE NEG (NEG); KETONE, URINE NEG (NEG); MUCUS URINE FEW /lpf (OCC); NITRITE,URINE NEG (NEG); SQUAMOUS EPITHELIAL CELL URINE <1 /hpf (0-5); URINE COLOR YELLOW (YELLW/STRAW)
[2016-12-23 15:37] LABS: ALT (GPT) 21 U/L (10-53); ANION GAP 8 MEQ/L (5-15); AST (GOT) 18 U/L (15-37); BICARBONATE 29.3 MEQ/L (21.0-32.0); BLOOD UREA NITROGEN 18 MG/DL (7-18); CHLORIDE 105 MEQ/L (98-107); GLOMERULAR FILTRATION RATE 71 ML/MIN (>89); SODIUM (NA) 142 MEQ/L (136-145)
[2016-12-23 15:39] LABS: ALKALINE PHOSPHATASE 123 U/L (45-117); TOTAL BILIRUBIN ADULT 0.2 MG/DL (0.2-1.0)
[2016-12-23 15:41] LABS: AMPHETAMINE, URINE NEG (NEG); BARBITURATES, URINE NEG (NEG); COCAINE, URINE NEG (NEG)
[2016-12-23 16:14] VITALS: BP 129/85; PULSE 97; RESP 14; O2SAT 97
[2016-12-23] MEDS ORDERED: LORazepam 1 MG TAB PO ONE (23:00)
[2016-12-24 01:00] VITALS: BP 144/78; PULSE 90; RESP 12; O2SAT 98
[2016-12-24 03:50] VITALS: BP 138/80; PULSE 89; RESP 14; O2SAT 99
[2016-12-24 06:47] VITALS: BP 140/76; PULSE 90; RESP 14; O2SAT 96
[2016-12-24 09:58] VITALS: BP_SYST 162; BP_SYST 184; BP_DIAS 72; BP_DIAS 79; RESP 14; O2SAT 97
[2016-12-24 10:00] VITALS: PULSE 104
[2016-12-24] MEDS ORDERED: LORazepam 1 MG TAB PO PRN (12:45)
[2016-12-24] MEDS: LEVOTHYROXINE SODIUM 100 MCG TAB PO SCH (12:45)
[2016-12-24] MEDS ORDERED: MAGNESIUM HYDROXIDE SUSP 30 ML CUP PO PRN (12:45)
[2016-12-24] MEDS ORDERED: ALUMINUM/MAGNESIUM/SIMETH 30 ML CUP PO PRN (12:45)
[2016-12-24] MEDS ORDERED: LORazepam 2 MG/ML VIAL IM PRN (12:45)
[2016-12-24] MEDS ORDERED: traZODone HCL 50 MG TAB PO PRN (12:45)
[2016-12-24] MEDS ORDERED: ACETAMINOPHEN 325 MG TAB PO PRN (12:45)
[2016-12-24] MEDS ORDERED: LORazepam 0.5 MG TAB PO PRN (12:45)
--- NOTE | 2016-12-24 13:13 | HHI.HP ---
Provisional Diagnosis Admission Date [place] I. Dementia with behavioral disturbance. Certification of Person's Competence To Provide Express and Informed Consent I have personally examined Emily Johnson , a person being served at [facility] on, Dec 24, 2016 12:55. Express and informed consent means consent voluntarily given in writing, by a competent person, after sufficient explanation and disclosure of the subject matter involved to enable the person to make a knowing and willful decision without any element of force, fraud, deceit, duress, or other form of constraint or coercion. This person is 18 years of age or older, is not now known to be incompetent to consent to treatment with a guardian advocate, and does not have a health care surrogate or proxy currently making medical treatment decisions. I have found this person to be one of the following: [] Competent to provide express and informed consent, as defined above, for voluntary admission to this facility and is competent to provide express and informed consent for treatment. He/she has the consistent capacity to make well reasoned, willful, and knowing decisions concerning his or her medical or mental health treatment. The person fully and consistently understands the purpose of the admission for examination/placement and is fully capable of personally exercising all rights assured [place] [X] Incompetent to provide express and informed consent to voluntary admission, and this is incompetent to provide express and informed consent to treatment. The person must be transferred to involuntary status and a petition for a guardian advocate filed with the Circuit Court. [] Refusing to provide express and informed consent to voluntary admission but is competent to provide express and informed consent for treatment. The person must be discharged or transferred to involuntary status. Form shall be completed within 24 hours of a person's arrival at the receiving facility and filed in the clinical record of each person: 1. Admitted on a voluntary basis 2. Permitted to provide express and informed consent to his/her own treatment 3. Allowed to transfer from involuntary to voluntary status 4. Prior to permitting a person to consent to his or her own treatment after having been previously found incompetent to consent to treatment. History of Present Illness Capacity: Lacks Capacity HPI This is an 86-year-old female who is being Hanson acted for violence towards staff at her retirement/rehabilitation facility. The patient is a very poor historian. She has a history of multiple medical problems including cardiac disease and thyroid disease. Apparently she was repeatedly physically violent towards staff yesterday. The patient does not have any knowledge or memory of this at the present time. In fact, she is unable to communicate well. She has both word finding difficulty as well as memory deficits and pseudo-bulbar affect. At this time, the patient is requiring a sitter and soft restraints in the emergency department. This physician spoke with the patient's nurse about her current behavior, which continues to be confused and agitated and violent towards others. Patient is unable to reasonably follow requests or directions. She is disoriented to time, place and situation. She does come across as paranoid, believing that staff members here at the hospital are trying to harm her in some way. Review of Systems ROS Limitations: Altered Mental Status, Uncooperative, Combative, Poor Historian Except as stated in HPI: all other systems reviewed are Neg Past Psych History Psychological trauma history No known psychological trauma. This will apparently be her first psychiatric admission to [facility]. Violence risk - others (6 mos) Violence risk to others is considered very high and repeated. Violence risk - self (6 mos) Violence risk to self is also considered high as the patient is unable to take care of herself. Substance Abuse History Drugs/Alcohol past 12 months Denied for substance abuse or alcohol abuse. Past Family Social History Coded Allergies: Influenza Virus Vaccine (Verified Allergy, Unknown, 12/23/16) Penicillin (Verified Allergy, Unknown, 12/23/16) Active Scripts Sennosides-Docusate Sodium (Senna Plus 8.6-50 mg)1 Tab Tab2 Tab PO 2 po daily # 60 TAB Ref 0 Prov:Corey Weiss MD 11/12/16 Lisinopril 5 Mg Tab5 Mg PO DAILY #30 TAB Ref 0 Prov:Corey Wesis MD 11/12/16 Reported Medications Acetaminophen (Tylenol)325 Mg [id number] Mg PO Q4H PRN (PAIN SCALE 1 TO 3) Ref 0 12/23/16 Clonazepam 0.5 Mg Tab0.5 Mg PO BID #60 TAB Ref 0 12/23/16 Quetiapine (Seroquel)25 Mg Tab12.5 Mg PO BID #60 TAB Ref 0 12/23/16 Quetiapine (Seroquel)50 Mg Tab50 Mg PO HS #30 TAB Ref 0 11/01/16 Levothyroxine 100 Mcg [id number] Mcg PO DAILY #30 TAB Ref 0 11/01/16 Discontinued Reported Medications Lorazepam (Ativan)0.5 Mg Tab0.5 Mg PO Q8H PRN (ANXIETY AND/OR AGITATION) Ref 0 11/01/16 Dextromethorphan HBr-Quinidine (Nuedexta 20-10 mg)1 Cap Cap1 Cap PO BID #60 CAP Ref 0 11/01/16 Sennosides (Senna)8.6 Mg Cap8.6 Mg PO HS Ref 0 11/01/16 Discontinued Scripts Levothyroxine (Synthroid)100 Mcg Ais160 Mcg PO DAILY@0600 #30 TAB Ref 0 Prov:Corey Weiss MD 11/12/16 Haloperidol 0.5 Mg Tab0.5 Mg PO DAILY #30 TAB Ref 0 Prov:Corey Weiss MD 11/12/16 Haloperidol 1 Mg Tab1 Mg PO DAILY@ #60 TAB Ref 0 Prov:Corey Weiss MD 11/12/16 Patient currently takes Seroquel, cardiovascular medicine, Klonopin, thyroid medicine, etc. Family History Unknown by patient. Social History Lives in a nursing/rehabilitation facility. Unknown as to whether they will take her back. No alcohol or drug history. Patient's Strengths (min. 2) Resilient and has access to healthcare. Physical Exam GENERAL: SKIN: Warm and dry. HEAD: Normocephalic. EYES: No scleral icterus. No injection or drainage. NECK: Supple, trachea midline. No JVD or lymphadenopathy. CARDIOVASCULAR: Regular rate and rhythm without murmurs, gallops, or rubs. RESPIRATORY: Breath sounds equal bilaterally. No accessory muscle use. GASTROINTESTINAL: Abdomen soft, non-tender, nondistended. MUSCULOSKELETAL: No cyanosis, or edema. BACK: Nontender without obvious deformity. No CVA tenderness. Vital Signs Vital Signs Date Time Temp Pulse Resp B/P Pulse Ox O2 Delivery O2 Flow Rate FiO2 12/24/16 10:00 104 12/24/16 09:58 14 162/72 97 Room Air 12/23/16 14:20 97.3 I/O 12/23/16 12/23/16 12/24/16 08:00 16:00 00:00 Output Total 200 ml Balance -200 ml Mental Status Examination Speech: Slow, Incoherent, Other Orientation: Person Memory: Impaired (describe) Thought Process: Goal Directed, Other Thought Content: Paranoid Hallucination Type: None Attention and Concentration: Easily Distracted Suicidal Ideation: No Previous Suicide Attempts: No Homicidal Ideation: No Previous Homicide Attempts: No Insight: Poor Judgment: Impulsive Affect: Irritable, Oppositional Affect if Inappropriate: Labile Mood: Appropriate Motor Activity: Mannerisms Assessment & Plan Problem List: (1) Dementia with behavioral disturbance ICD Code: F03.91 Assessment & Plan Estimated LOS: 7 days this is a 86-year-old female with dementia, Hanson acted for confusion, paranoia and violence towards staff members trying to care for her. Due to the significant risks of harm to self and others, associated with her dementia, she is being admitted. This physician is ordering a workup including an EKG to assess her cardiac conduction at this time prior to starting psychotropic medicines which might alter her conduction system. She is also having her thyroid function checked as she has a history of thyroid disease and this may be contributing to her confusion and paranoia. The hospitalist is being consulted to help us evaluate these underlying medical conditions because they may be contributing to her confusion and violence. This physician spoke with the patient's nurse regarding her recent behavior. This physician also spoke with the security business analyst and will have them obtain further information from the nursing facility and any family members. For now, this physician will continue the patient's Seroquel but it either needs to be increased or substituted for a different mood stabilizing antipsychotic to help with the patient's demeanor and behavior. Mina Wyatt MD Dec 24, 2016 13:13
[2016-12-24] MEDS: LISINOPRIL 5 MG TAB PO SCH (13:18)
[2016-12-24] MEDS: LORazepam 2 MG/ML VIAL IM PRN (15:01)
--- NOTE | 2016-12-24 16:03 | PD.CONS ---
HPI Service [facility] Hospitalists Consult Requested By Primary Care Physician Juan Miles MD Diagnoses: (1) Dementia (2) Hypothyroidism (3) HTN (hypertension) History of Present Illness Mrs. Johnson is an 86 year old female. We are consulted today for medical management. Patient has severe dementia and is unable to provide any history. Based on previous visits and medications the patient has constipation, hypertension and hypothyroidism. Blood pressures are not yet controlled while here. Additionally she has some elevations in her last TSH was was a while back and she needs retesting of this. No other history is obtainable. Review of Systems ROS Limitations: Altered Mental Status, Uncooperative, Poor Historian Past Family Social History Allergies: Coded Allergies: Influenza Virus Vaccine (Verified Allergy, Unknown, 12/23/16) Penicillin (Verified Allergy, Unknown, 12/23/16) Past Medical History Hypertension Hypothyroidism Constipation Past Surgical History Unable to obtain secondary to dementia Reported Medications Reported Meds & Active Scripts Active Senna Plus 8.6-50 mg (Sennosides-Docusate Sodium) 1 Tab Tab 2 Tab PO 2 PO DAILY Lisinopril 5 Mg Tab 5 Mg PO DAILY Reported Tylenol (Acetaminophen) 325 Mg Tab 650 Mg PO Q4H PRN Clonazepam 0.5 Mg Tab 0.5 Mg PO BID Seroquel (Quetiapine Fumarate) 25 Mg Tab 12.5 Mg PO BID Seroquel (Quetiapine Fumarate) 50 Mg Tab 50 Mg PO HS Levothyroxine (Levothyroxine Sodium) 100 Mcg Tab 100 Mcg PO DAILY Active Ordered Medications Administered Medications Medications (Trade) Dose Ordered Sig/Tera Route PRN Reason Start Time Stop Time Status Last Admin Dose Admin Lorazepam (Ativan Inj) 0.5 mg Q12H PRN IM MODERATE TO SEVERE ANXIETY 12/24/16 12:45 12/24/16 15:01 Lisinopril (Prinivil) 5 mg DAILY PO 12/24/16 12:45 12/24/16 13:18 Unable to obtain secondary to dementia Family History Unable to obtain secondary to dementia Social History Unable to obtain secondary to dementia Physical Exam Vital Signs Vital Signs Date Time Temp Pulse Resp B/P Pulse Ox O2 Delivery O2 Flow Rate FiO2 12/24/16 10:00 104 12/24/16 09:58 14 162/72 97 Room Air 12/24/16 06:47 90 14 140/76 96 Room Air 12/24/16 03:50 89 14 138/80 99 Room Air 12/24/16 01:00 90 12 144/78 98 Room Air 12/23/16 16:14 97 14 129/85 97 Room Air Physical Exam GENERAL: NAD, A&Ox1, cachexia SKIN: Warm and dry. HEAD: Normocephalic. EYES: No scleral icterus. No injection or drainage. NECK: Supple, trachea midline. No JVD or lymphadenopathy. No enlarged thyroid. CARDIOVASCULAR: Regular rate and rhythm without murmurs, gallops, or rubs. RESPIRATORY: Breath sounds equal bilaterally. No accessory muscle use. GASTROINTESTINAL: Abdomen soft, non-tender, nondistended. MUSCULOSKELETAL: No cyanosis, or edema. 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 Hypertension Resume home blood pressure medications When necessary clonidine for breakthrough hypertension Hypothyroidism Continue baseline treatment right now check TSH, T4, and free T3 Adjust if needed based on lab findings Chronic constipation Continue home treatment follow clinically for bowel movements DVT prophylaxis Patient spends much of her time in bed SCDs Problem Qualifiers (1) Dementia: Qualified Code: F03.91 - Dementia with behavioral disturbance, unspecified dementia type Kevin Arredondo MD Dec 24, 2016 4:03 pm
[2016-12-24] MEDS ORDERED: cloNIDine HCL 0.1 MG TAB PO PRN (17:00)
[2016-12-24 17:02] VITALS: BP 123/63; PULSE 95; RESP 16; TEMP 98.1; O2SAT 95
[2016-12-24] MEDS: QUEtiapine FUMARATE 25 MG TAB PO SCH ×2 (21:00)
[2016-12-24] MEDS: clonazePAM 0.5 MG TAB PO SCH (21:00)
[2016-12-25 05:55] VITALS: BP 147/64; PULSE 98; RESP 17; TEMP 97.5; O2SAT 94
[2016-12-25] MEDS: LEVOTHYROXINE SODIUM 100 MCG TAB PO SCH (06:00)
[2016-12-25 07:22] LABS: AUTOMATED NEUTROPHIL # 8.4 TH/MM3 (1.8-7.7); BASOPHIL # 0.1 TH/MM3 (0-0.2); BASOPHIL % 0.5 % (0.0-2.0); EOSINOPHIL % 0.1 % (0.0-4.0); HEMATOCRIT 43.2 % (35.0-46.0); HEMO FLAGS DIFF FINAL; LYMPH % 15.2 % (9.0-44.0); LYMPHOCYTE # 1.6 TH/MM3 (1.0-4.8); MEAN CELL VOLUME 84.8 FL (80.0-100.0); MEAN CORPUSCULAR HEMOGLOBIN 28.7 PG (27.0-34.0); MEAN CORPUSCULAR HGB CONC 33.8 % (32.0-36.0); MONO % 4.9 % (0.0-8.0); NEUT % 79.3 % (16.0-70.0); PLATELET COUNT 221 TH/MM3 (150-450); RED BLOOD COUNT 5.09 MIL/MM3 (4.00-5.30); RED CELL DISTRIBUTION WIDTH 14.5 % (11.6-17.2); WHITE BLOOD COUNT 10.6 TH/MM3 (4.0-11.0)
[2016-12-25 08:06] LABS: ALKALINE PHOSPHATASE 135 U/L (45-117); ALT (GPT) 22 U/L (10-53); ANION GAP 11 MEQ/L (5-15); AST (GOT) 25 U/L (15-37); BLOOD UREA NITROGEN 25 MG/DL (7-18); CHLORIDE 100 MEQ/L (98-107); FREE T3 1.55 PG/ML (2.18-3.98); GLOMERULAR FILTRATION RATE 54 ML/MIN (>89); HDL CHOLESTEROL 85.8 MG/DL (40.0-60.0); LDL CHOLESTEROL 171 MG/DL (0-99); POTASSIUM 4.1 MEQ/L (3.5-5.1); SODIUM (NA) 139 MEQ/L (136-145); THYROXINE (T4) 7.9 MCG/DL (4.8-13.9); TOTAL BILIRUBIN ADULT 0.7 MG/DL (0.2-1.0)
[2016-12-25] MEDS: LISINOPRIL 5 MG TAB PO SCH (09:00)
[2016-12-25] MEDS: QUEtiapine FUMARATE 25 MG TAB PO SCH ×2 (09:00→21:00)
[2016-12-25] MEDS: clonazePAM 0.5 MG TAB PO SCH ×2 (09:00→21:00)
[2016-12-25] MEDS: DOCUSATE SODIUM 50 MG/SENNA 8.6 MG TAB PO SCH (09:00)
[2016-12-25 09:28] VITALS: BP 143/84; PULSE 83; RESP 18; TEMP 97.5; O2SAT 95
--- NOTE | 2016-12-25 11:05 | HHI.PR ---
Subjective Remarks Blood pressures are improved on blood pressure treatment adjustments. I would allow patient's blood pressures to elevate occasionally as long as she doesn't consistently maintain her blood pressures greater than 150/90. Her thyroid testing showed that she may benefit from increased dosing of levothyroxine. She is increased from 100 g daily to 125 g daily. This doesn't have to be tested again for 2-3 months. She appears to be at her baseline and I see no other medical problems addressed at this point. At this point medical team will sign off. Medically she is clear for discharge to long-term care facility. Objective Vital Signs Date Time Temp Pulse Resp B/P Pulse Ox O2 Delivery O2 Flow Rate FiO2 12/25/16 09:28 97.5 83 18 143/84 95 12/25/16 05:55 97.5 98 17 147/64 94 12/24/16 17:02 98.1 95 16 123/63 95 I/O 12/24/16 12/24/16 12/24/16 12/25/16 12/25/16 12/25/16 07:00 15:00 23:00 07:00 15:00 23:00 Intake Total 0 ml Output Total 400 ml Balance -400 ml 0 ml Intake Oral 0 ml Output Urine Total 400 ml # Voids 1 Result Diagram: 12/25/16 0541 12/25/16 0541 A/P Problem List: (1) Senile dementia with psychosis ICD Code: F02.81 (2) HTN (hypertension) ICD Code: I10 (3) Hypothyroidism ICD Code: E03.9 (4) Dementia ICD Code: F03.90 (5) Constipation ICD Code: K59.00 Assessment and Plan Assessment and plan 86-year-old female with hypertension, dementia, and hypothyroidism. Hypertension Doing well with resumption of home blood pressure medications When necessary clonidine for breakthrough hypertension Hypothyroidism Increase levothyroxine to 125 g daily Follow up as an outpatient with retesting in 2-3 months Chronic constipation Continue home treatment follow clinically for bowel movements DVT prophylaxis Patient spends much of her time in bed SCDs Discharge planning Patient is medically stable. She is medically cleared for discharge once cleared by psych Problem Qualifiers (1) Dementia: Qualified Code: F03.91 - Dementia with behavioral disturbance, unspecified dementia type Kevin Arredondo MD Dec 25, 2016 11:05
--- NOTE | 2016-12-25 17:04 | PD.CONS ---
Provisional Diagnosis Admission Date Dec 24, 2016 at 12:45 [place] I. 1. Dementia, possibly of the Alzheimer type with behavioral disturbance [place] II. Deferred [place] V. GAF is 30 presently History of Present Illness Service Psychiatry Consult Requested By Dr. Wyatt Reason for Consult Second opinion for involuntary psychiatric hospitalization Primary Care Physician Juan Miles MD HPI From Dr. Wyatt's H&P: This is an 86-year-old female who is being Hanson acted for violence towards staff at her jail/rehabilitation facility. The patient is a very poor historian. She has a history of multiple medical problems including cardiac disease and thyroid disease. Apparently she was repeatedly physically violent towards staff yesterday. The patient does not have any knowledge or memory of this at the present time. In fact, she is unable to communicate well. She has both word finding difficulty as well as memory deficits and pseudo-bulbar affect. At this time, the patient is requiring a sitter and soft restraints in the emergency department. This physician spoke with the patient's nurse about her current behavior, which continues to be confused and agitated and violent towards others. Patient is unable to reasonably follow requests or directions. She is disoriented to time, place and situation. She does come across as paranoid, believing that staff members here at the hospital are trying to harm her in some way. On my examination today: Patient seen and examined. Chart reviewed. Case discussed with nursing staff who reports patient has struggled with ongoing episodes of agitation in the setting of her dementia while on the inpatient psychiatric unit. On my examination today, the patient is disoriented and quite confused. She appears somewhat internally preoccupied and at one point says "father please help me." No sarahy delusional material. Exhibits utilization behavior. No issues with mood noted. No evidence side effects from medications. No physical complaints. Psychiatric interview is limited because of patient's degree of cognitive impairment, and I cannot obtain any past psychiatric, family, chemical dependency or social history from this patient at this time for the same reason. Review of Systems ROS Limitations: Poor Historian Other Psychiatric ROS limited. Past Family Social History Coded Allergies: Influenza Virus Vaccine (Verified Allergy, Unknown, 12/23/16) Penicillin (Verified Allergy, Unknown, 12/23/16) Past Medical History See electronic medical record Active Scripts Sennosides-Docusate Sodium (Senna Plus 8.6-50 mg)1 Tab Tab2 Tab PO 2 po daily # 60 TAB Ref 0 Prov:Corey Weiss MD 11/12/16 Lisinopril 5 Mg Tab5 Mg PO DAILY #30 TAB Ref 0 Prov:Corey Weiss MD 11/12/16 Reported Medications Acetaminophen (Tylenol)325 Mg [id number] Mg PO Q4H PRN (PAIN SCALE 1 TO 3) Ref 0 12/23/16 Clonazepam 0.5 Mg Tab0.5 Mg PO BID #60 TAB Ref 0 12/23/16 Quetiapine (Seroquel)25 Mg Tab12.5 Mg PO BID #60 TAB Ref 0 12/23/16 Quetiapine (Seroquel)50 Mg Tab50 Mg PO HS #30 TAB Ref 0 11/01/16 Levothyroxine 100 Mcg [id number] Mcg PO DAILY #30 TAB Ref 0 11/01/16 Discontinued Reported Medications Lorazepam (Ativan)0.5 Mg Tab0.5 Mg PO Q8H PRN (ANXIETY AND/OR AGITATION) Ref 0 11/01/16 Dextromethorphan HBr-Quinidine (Nuedexta 20-10 mg)1 Cap Cap1 Cap PO BID #60 CAP Ref 0 11/01/16 Sennosides (Senna)8.6 Mg Cap8.6 Mg PO HS Ref 0 11/01/16 Discontinued Scripts Levothyroxine (Synthroid)100 Mcg [id number] Mcg PO DAILY@0600 #30 TAB Ref 0 Prov:Corey Weiss MD 11/12/16 Haloperidol 0.5 Mg Tab0.5 Mg PO DAILY #30 TAB Ref 0 Prov:Corey Weiss MD 11/12/16 Haloperidol 1 Mg Tab1 Mg PO DAILY@ #60 TAB Ref 0 Prov:Corey Weiss MD 11/12/16 Current Medications Medications (Trade) Dose Ordered Sig/Tera Route Start Time Stop Time Status Last Admin (Ativan) 0.5 mg Q12H PRN PO 12/24/16 12:45 (Ativan Inj) 0.5 mg Q12H PRN IM 12/24/16 12:45 12/24/16 15:01 (Tylenol) 650 mg Q4H PRN PO 12/24/16 12:45 (Milk Of Magnesia Liq) 30 ml DAILY PRN PO 12/24/16 12:45 (Mag-Al Plus Susp Liq) 30 ml Q6H PRN PO 12/24/16 12:45 (Desyrel) 50 mg HS PRN PO 12/24/16 12:45 (KlonoPIN) 0.5 mg BID PO 12/24/16 21:00 12/24/16 21:00 (Prinivil) 5 mg DAILY PO 12/24/16 12:45 12/25/16 09:00 (SEROquel) 12.5 mg BID PO 12/24/16 21:00 12/25/16 09:00 (Radha-Colace) 2 tab DAILY PO 12/25/16 09:00 12/25/16 09:00 (SEROquel) 50 mg HS PO 12/24/16 21:00 12/24/16 21:00 (Catapres) 0.1 mg Q6H PRN PO 12/24/16 17:00 (Synthroid) 125 mcg DAILY@0600 PO 12/26/16 06:00 Patient's Strengths (min. 2) In a monitored setting. Retains some verbal fluency. Physical Exam Physical examination completed by hospitalist internal consultant. On my examination today, the patient appears to be in no acute physical distress. No motor abnormalities noted. Laboratories and vital signs reviewed: Vital Signs Vital Signs Date Time Temp Pulse Resp B/P Pulse Ox O2 Delivery O2 Flow Rate FiO2 12/25/16 09:28 97.5 83 18 143/84 95 12/24/16 09:58 Room Air I/O 12/24/16 12/24/16 12/25/16 08:00 16:00 00:00 Output Total 400 ml Balance -400 ml Lab Results Item Value Date Time White Blood Count 10.6 TH/MM3 12/25/16 0541 Hemoglobin 14.6 GM/DL # 12/25/16 0541 Platelet Count 221 TH/MM3 12/25/16 0541 Sodium Level 139 MEQ/L 12/25/16 0541 Potassium Level 4.1 MEQ/L 12/25/16 0541 Chloride Level 100 MEQ/L 12/25/16 0541 Carbon Dioxide Level 28.0 MEQ/L 12/25/16 0541 Blood Urea Nitrogen 25 MG/DL H 12/25/16 0541 Creatinine 0.98 MG/DL 12/25/16 0541 Aspartate Amino Transf (AST/SGOT) 25 U/L 12/25/16 0541 Alanine Aminotransferase (ALT/SGPT) 22 U/L 12/25/16 0541 Alkaline Phosphatase 135 U/L H 12/25/16 0541 Free Triiodothyronine (T3) pg/dL 1.55 PG/ML L 12/25/16 05 Thyroid Stimulating Hormone 3rd Gen 18.400 uIU/ML H 12/25/16 0541 Urine Opiates Screen NEG 12/23/16 1450 Urine Barbiturates Screen NEG 12/23/16 1450 Urine Amphetamines Screen NEG 12/23/16 1450 Urine Benzodiazepines Screen NEG 12/23/16 1450 Urine Cocaine Screen NEG 12/23/16 1450 Urine Cannabinoids Screen NEG 12/23/16 1450 Urinalysis reviewed. Mental Status Examination Patient is in hospital gown. She is disheveled. She is awake and alert and disoriented. No motor abnormalities noted. Speech is rambling and largely nonsensical. Memory seems profoundly impaired. Language and fund of knowledge are reduced. Affect is somewhat restricted and dysphoric. Thought process disorganized with poverty of thought. No sarahy delusions. Possibly some degree of internal stimulation. No SI or HI voiced with the patient is unreliable to contract for safety in her present state. Insight and judgment are poor. Assessment & Plan Problem List: (1) Dementia with behavioral disturbance ICD Code: F03.91 Assessment & Plan Given the circumstances of her presentation here in her presentation on my examination today, I concur with Dr. Wyatt that the patient meets criteria for involuntary psychiatric hospitalization under the Hanson act. I have completed second opinion paperwork. I will titrate patient's Seroquel to 25 mg in the morning and 75 mg at bedtime for management of behaviors. Hospitalist internal consultant input noted and appreciated. Continue to monitor on the inpatient unit. Continue other medications and care as ordered. Discharge Planning Pending psychiatric stabilization. Request HC Surrog/Guard Advoc?: Yes Problem Qualifiers (1) Dementia with behavioral disturbance: Qualified Code: G30.8 - Alzheimer's dementia with behavioral disturbance, unspecified timing of dementia onset Mayo Ambriz MD Dec 25, 2016 17:04
[2016-12-25] MEDS: LORazepam 2 MG/ML VIAL IM PRN (17:41)
[2016-12-25 20:00] VITALS: BP 140/63; PULSE 106; RESP 17
[2016-12-26] MEDS: LEVOTHYROXINE SODIUM 125 MCG TAB PO SCH (05:35)
[2016-12-26 06:33] VITALS: BP 93/53; PULSE 104; RESP 16; TEMP 97.1
[2016-12-26 08:09] VITALS: BP 104/55; PULSE 83; RESP 22; O2SAT 95
[2016-12-26] MEDS: QUEtiapine FUMARATE 25 MG TAB PO SCH ×2 (09:00→21:00)
[2016-12-26] MEDS: DOCUSATE SODIUM 50 MG/SENNA 8.6 MG TAB PO SCH (09:00)
[2016-12-26] MEDS: clonazePAM 0.5 MG TAB PO SCH ×2 (09:00→21:00)
[2016-12-26] MEDS: LISINOPRIL 5 MG TAB PO SCH (09:00)
[2016-12-26 10:07] LABS: HEMOGLOBIN A1b 1.7 %; HEMOGLOBIN Ao 85.5 %; HEMOGLOBIN LA1C 2.1 %; HEMOGLOBIN P3 5.3 %
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
[2016-12-26] MEDS ORDERED: HEPARIN SODIUM - SQ 10,000 UNITS/ML VIAL SQ SCH (12:15)
[2016-12-26] MEDS ORDERED: BISACODYL 10 MG SUPP RECTAL PRN (12:15)
[2016-12-26 12:30] VITALS: BP 78/42; PULSE 94; RESP 17
[2016-12-26] MEDS: SODIUM CHLOR 0.9% 1000 ML INJ 1,000 ML IV SCH ×2 (13:00→20:06)
[2016-12-26] MEDS ORDERED: SODIUM CHLOR 0.9% 250 ML INJ 250 ML IV ONE (13:00)
[2016-12-26] MEDS ORDERED: SODIUM CHLOR 0.9% 1000 ML INJ 1,000 ML IV ONE (13:15)
[2016-12-26] MEDS: ENOXAPARIN SODIUM 40 MG/0.4 ML SYRINGE SQ SCH (14:00)
--- NOTE | 2016-12-26 14:08 | EKG ---
Date Performed: 12/25/2016 Time Performed: 13:42:02 PTAGE: 86 years EKG: Sinus rhythm NONSPECIFIC T-WAVE ABNORMALITY BORDERLINE ECG NO PREVIOUS TRACING DOCTOR: Mina Spring Interpretating Date/Time 12/26/2016 14:07:03
[2016-12-26 15:02] VITALS: BP 118/54; PULSE 84; RESP 20
--- NOTE | 2016-12-26 18:28 | HHI.PYPN ---
Subjective Remarks Patient remains very confused, disoriented, with impaired memory. She is easily agitated and becomes oppositional at these times. She has poor impulse control. This physician spoke with the patient's nurse regarding her current behavior. We will reexamine her medications for more mood and behavioral stability. Review of Systems ROS Limitations: Clinical Condition Objective Alert: Yes [place]: Person Mood: Agitated Affect: Labile Memory Intact: Immediate Hallucinations: Other Delusions: Yes Delusion Type: Paranoid Suicidal: Ideation (not) Homicidal: Ideation Insight/Judgment Poor Vitals/IOs Vital Signs Date Time Temp Pulse Resp B/P Pulse Ox O2 Delivery O2 Flow Rate FiO2 12/26/16 15:02 84 20 118/54 12/26/16 08:09 95 12/26/16 06:33 97.1 12/24/16 09:58 Room Air Intake and Output 12/25/16 12/25/16 12/25/16 07:59 15:59 23:59 Intake Total 360 ml Balance 360 ml Assessment & Plan Problem List: (1) Dementia in other diseases classified elsewhere with behavioral disturbance ICD Code: F02.81 (2) Dementia with behavioral disturbance ICD Code: F03.91 Assessment & Plan Estimated LOS: 7 days this physician will continue to address patient's behavioral issues with medication management. Her medications have not been effective thus far and those that are ineffective will be discontinued. She remains at risk for harming herself and others. This physician will continue to titrate Seroquel accordingly. Justification for Cont. Inpt. Will decompensate at lower level of care. Request HC Surrog/Guard Advoc?: Yes Problem Qualifiers (1) Dementia with behavioral disturbance: Qualified Code: G30.8 - Alzheimer's dementia with behavioral disturbance, unspecified timing of dementia onset Mina Wyatt MD Dec 26, 2016 18:28
[2016-12-27 05:21] VITALS: BP 125/61; PULSE 70; RESP 12; TEMP 97.5; O2SAT 97
[2016-12-27] MEDS: SODIUM CHLOR 0.9% 1000 ML INJ 1,000 ML IV SCH (05:24)
[2016-12-27] MEDS: LEVOTHYROXINE SODIUM 125 MCG TAB PO SCH (05:31)
[2016-12-27] MEDS: DOCUSATE SODIUM 50 MG/SENNA 8.6 MG TAB PO SCH (09:00)
[2016-12-27] MEDS: clonazePAM 0.5 MG TAB PO SCH ×2 (09:00→20:16)
[2016-12-27] MEDS: QUEtiapine FUMARATE 25 MG TAB PO SCH ×2 (09:00→20:16)
--- NOTE | 2016-12-27 09:10 | HHI.PR ---
Subjective Remarks Follow-up on patient with hypertension and hypothyroidism. Patient seen and examined today. The patient is awake. She is extremely confused. Increased agitation due to right wrist restraint. No BM documented in system. She is eating 0-5% of her meals. Objective Vitals Vital Signs Date Time Temp Pulse Resp B/P Pulse Ox O2 Delivery O2 Flow Rate FiO2 12/27/16 05:21 97.5 70 12 125/61 97 12/26/16 15:02 84 20 118/54 12/26/16 12:30 94 17 78/42 I/O 12/26/16 12/26/16 12/26/16 12/27/16 12/27/16 12/27/16 07:00 15:00 23:00 07:00 15:00 23:00 Intake Total 0 ml 120 ml 1085 ml 0 ml Balance 0 ml 120 ml 1085 ml 0 ml Intake Oral 0 ml 120 ml 50 ml 0 ml IV Total 1035 ml # Voids 1 Result Diagram: 12/25/1654012/25/16540 Objective Remarks GENERAL: Underweight, cachectic-appearing elderly female. She is in soft wrist restraints. Agitated. SKIN: Warm and dry. No rash. HEAD: Normocephalic. Atraumatic. CARDIOVASCULAR: Regular rate and rhythm. S1, S2 noted. No murmur appreciated. RESPIRATORY: No accessory muscle use. Clear to auscultation. Breath sounds equal bilaterally. GASTROINTESTINAL: Abdomen soft, non-tender, nondistended. Normoactive bowel sounds x4. MUSCULOSKELETAL: No obvious deformities. Extremities without clubbing, cyanosis , or edema. NEUROLOGICAL: Agitated. Confused. Medications and IVs Current Medications Medications (Trade) Dose Ordered Sig/Tera Route Start Time Stop Time Status Last Admin (Ativan) 0.5 mg Q12H PRN PO 12/24/16 12:45 (Ativan Inj) 0.5 mg Q12H PRN IM 12/24/16 12:45 12/25/16 17:41 (Tylenol) 650 mg Q4H PRN PO 12/24/16 12:45 (Milk Of Magnesia Liq) 30 ml DAILY PRN PO 12/24/16 12:45 (Mag-Al Plus Susp Liq) 30 ml Q6H PRN PO 12/24/16 12:45 (Desyrel) 50 mg HS PRN PO 12/24/16 12:45 (KlonoPIN) 0.5 mg BID PO 12/24/16 21:00 12/27/16 09:00 (Prinivil) 5 mg DAILY PO 12/24/16 12:45 Hold 12/25/16 09:00 (Radha-Colace) 2 tab DAILY PO 12/25/16 09:00 12/27/16 09:00 (Catapres) 0.1 mg Q6H PRN PO 12/24/16 17:00 (Synthroid) 125 mcg DAILY@0600 PO 12/26/16 06:00 12/27/16 05:31 (SEROquel) 25 mg DAILY PO 12/26/16 09:00 12/27/16 09:00 Quetiapine Fumarate 75 mg 75 mg HS PO 12/25/16 21:00 12/26/16 21:00 (NS 1000 ml Inj) 1,000 ml @ 50 mls/hr Q20H IV 12/26/16 13:00 12/27/16 05:24 (Lovenox Inj) 40 mg Q24H SQ 12/26/16 14:00 12/26/16 14:00 A/P Problem List: (1) Hypothyroidism ICD Code: E03.9 Status: Acute (2) Dementia with behavioral disturbance ICD Code: F03.91 Status: Acute (3) HTN (hypertension) ICD Code: I10 Status: Acute (4) Senile dementia with psychosis ICD Code: F02.81 Status: Acute (5) Constipation ICD Code: K59.00 Status: Chronic Assessment and Plan 86-year-old female with hypertension, dementia, and hypothyroidism admitted to med psych under Hanson act. Dementia, Alzheimer type with behavioral disturbance Management per psychiatric team Poor by mouth intake Malnourished, BMI 15.7 Failure to thrive Ate very small amount of lunch. Continue IVF hydration Palliative care consult requested, appreciate their assistance. Per their assessment, patient not a good candidate for artificial feeding tube due to likelihood patient would pull it out. Hypertension controlled Encourage fluids Continue to hold lisinopril due to low blood pressure When necessary clonidine for breakthrough hypertension Continue to monitor BP and adjust treatment as indicated Hypothyroidism Continue levothyroxine to 125 g daily Follow up as an outpatient with retesting in 2-3 months Chronic constipation Dulcolax suppository continue with Radha Colace daily follow clinically for bowel movements DVT prophylaxis Patient spends much of her time in bed Heparin sq BID Patient is DNR Discussed with nursing staff, patient and Dr. Keyes Problem Qualifiers (1) Dementia with behavioral disturbance: Qualified Code: G30.8 - Alzheimer's dementia with behavioral disturbance, unspecified timing of dementia onset Jennifer You Dec 27, 2016 09:10
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
[2016-12-27] MEDS ORDERED: BISACODYL 10 MG SUPP RECTAL ONE (12:00)
[2016-12-27] MEDS: ENOXAPARIN SODIUM 40 MG/0.4 ML SYRINGE SQ SCH (14:00)
[2016-12-27] MEDS ORDERED: POLYETHYLENE GLYCOL 17 GM PKG PO ONE (16:00)
[2016-12-27 20:00] VITALS: BP 172/72; PULSE 106
[2016-12-27] MEDS: LORazepam 2 MG/ML VIAL IM PRN (20:16)
[2016-12-28] MEDS: SODIUM CHLOR 0.9% 1000 ML INJ 1,000 ML IV SCH (05:00)
[2016-12-28 06:29] VITALS: BP 155/75; PULSE 83; RESP 16; O2SAT 97
[2016-12-28] MEDS: LEVOTHYROXINE SODIUM 125 MCG TAB PO SCH (06:34)
[2016-12-28] MEDS: QUEtiapine FUMARATE 25 MG TAB PO SCH ×2 (09:00→20:49)
[2016-12-28] MEDS: POLYETHYLENE GLYCOL 17 GM PKG PO SCH (09:00)
[2016-12-28] MEDS: DOCUSATE SODIUM 50 MG/SENNA 8.6 MG TAB PO SCH (09:00)
[2016-12-28] MEDS: clonazePAM 0.5 MG TAB PO SCH ×2 (09:00→20:49)
--- NOTE | 2016-12-28 10:22 | HHI.PYPN ---
Subjective Remarks This is a psychiatric progress note for December 27, 2016. The patient continues to be very angry, irritable, oppositional and cursing. She is using inappropriate language with multiple staff members on a frequent basis. She appears to have markedly impaired insight and judgment and frequent dyscontrol of her behavior and her language. She is uncooperative with staff. Case was discussed with patient's nurse. Review of Systems ROS Limitations: Uncooperative Objective Alert: Yes [place]: Person Mood: Agitated Affect: Labile Memory Intact: Immediate Hallucinations: Other Delusions: Yes Delusion Type: Paranoid Suicidal: Ideation (not) Homicidal: Ideation Insight/Judgment Very poor Vitals/IOs Vital Signs Date Time Temp Pulse Resp B/P Pulse Ox O2 Delivery O2 Flow Rate FiO2 12/28/16 06:29 83 16 155/75 97 12/27/16 05:21 97.5 12/24/16 09:58 Room Air Intake and Output 12/27/16 12/27/16 12/28/16 08:00 16:00 00:00 Intake Total 1085 ml 630 ml 0 ml Balance 1085 ml 630 ml 0 ml Assessment & Plan Problem List: (1) Dementia in other diseases classified elsewhere with behavioral disturbance ICD Code: F02.81 (2) Dementia with behavioral disturbance ICD Code: F03.91 Assessment & Plan Estimated LOS: 7 days will continue to adjust antipsychotic medication and benzodiazepine medication to assist with behavioral control and mood stabilization. Patient is emotionally labile and behaviorally impulsive. Justification for Cont. Inpt. Will decompensate further at lower level of care. Request HC Surrog/Guard Advoc?: Yes Problem Qualifiers (1) Dementia with behavioral disturbance: Qualified Code: G30.8 - Alzheimer's dementia with behavioral disturbance, unspecified timing of dementia onset Mina Wyatt MD Dec 28, 2016 10:22
--- NOTE | 2016-12-28 12:15 | HHI.HCPN ---
Reason for visit a. To assist with evaluation and management of symptoms including: Agitation , constipation, confusion. b. To assist medical decision maker(s) with: better understanding of current medical conditions; weighing benefits/burdens of medical treatment options; making medical treatment decisions. Subjective/Interval History Patient seen today in follow-up for agitation, constipation and confusion. Spoke with at bedside yesterday, he is not present today. This is an 86 -year-old female admitted from [facility] due to aggressive and violent behavior against the staff to include paranoia and hallucinations. This is her second admission to psychiatry since October 2016 for the same diagnoses, which occurred after weaning of her Seroquel in the SNF. She remains agitated, verbally abusive, cursing at staff, hold report frequent sexually inappropriate behavior and comments from the patient. She remains restrained for the safety of herself and the staff. Medication titration is in process with up titration of her Seroquel from 75 mg by mouth daily at bedtime to 100 mg by mouth daily at bedtime and increase in clonazepam from 0.5 mg by mouth twice a day to 1 mg by mouth twice a day. She did not receive her a.m. medications including Radha-Colace, Seroquel 25 mg and MiraLAX due to combative behavior. Her stated that she will eat for him, however, this morning the aide had difficulty getting the patient to eat even a small amount of her breakfast, finding her to pocket food in her mouth and not swallow, putting her at risk for aspiration. She is cachectic and with poor by mouth intake, her weight continues to decline from 39 kg November 02 to 36 kg 12/28. Per my discussion with her yesterday, she is a DNR status and he does not wish a feeding tube for supplemental nutrition, which she would likely pull out due to her agitation. . Advance Directives Living Will: Never completed Health Care Surrogate: Never completed Durable Power of Form Drafter: Never completed Objective Vital Signs Date Time Temp Pulse Resp B/P Pulse Ox O2 Delivery O2 Flow Rate FiO2 12/28/16 06:29 83 16 155/75 97 12/27/16 20:00 106 172/72 Intake & Output 12/28/16 12/28/16 07:00 19:00 Intake Total 0 ml Balance 0 ml Intake Oral 0 ml # Voids 2 Physical Exam CONSTITUTIONAL/GENERAL: This is an cachectic patient, agitated, combative, in soft wrist restraints. CARDIOVASCULAR: Regular rate and rhythm without murmurs, gallops, or rubs. No JVD. Peripheral pulses symmetric. RESPIRATORY/CHEST: Symmetric, unlabored respirations. Clear to auscultation. Breath sounds equal bilaterally. No wheezes, rales, or rhonchi. GASTROINTESTINAL: Abdomen soft, nondistended. Bowel sounds present. GENITOURINARY: Without palpable bladder distension. MUSCULOSKELETAL: Extremities without clubbing, cyanosis, or edema. No mottling or clubbing. NEUROLOGICAL: Confused, oriented to self, moves all extremities. PSYCHIATRIC: Agitated, combative, cursing at staff. Soft wrist restraints. Diagnostic Tests Laboratory Laboratory Tests Test 12/26/16 17:13 Magnesium Level 2.3 MG/DL (1.5-2.5) Result Diagram: 12/25/16 0541 12/25/16 0541 Assessment and Plan Disease Oriented Problem List: (1) Dementia with behavioral disturbance (2) Hypothyroidism (3) HTN (hypertension) Symptom Scale: (1) Constipation 0-10 Scale: Unable to quantify (2) Agitation 0-10 Scale: Unable to quantify (3) Confusion 0-10 Scale: Unable to quantify Pertinent Non-Medical Issues Psychosocial:She was born in [facility] where she met her and lived there for 48 years prior to moving to [place] 36 years ago. 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 They have no children, no other living family. Per her she has no spiritual affiliation. Spiritual: No spiritual affiliation. Legal: Her would be her proxy decision maker. Ethical issues impacting care: . Important Contacts - Sonny Johnson Prognosis Her prognosis is poor. She has severe dementia with behavioral disturbances interfering with her basic ability to feed and care for herself. She is cachectic with a BMI of 16.9, 34.1 kg, 58 inches tall, which has declined from her previous admission in October 2016 where her weight was 40.5 kg. Due to her agitation and dementia she would be a poor candidate for artificial feeding tube , due to the likelihood that she would pull it out. Code Status: No Code Plan PLAN: Legal decision maker: - Sonny Johnson Goals: Conservative. CODE STATUS: DO NOT RESUSCITATE SYMPTOMS: * Agitation - she is requiring antipsychotic medications, restraints and a sitter for her own protection. Per her this is her baseline. I did discuss this with [facility] where she currently resides and they state that this is chronically her behavior to include violence against staff members from time to time. She is admitted under [facility] act for psychiatry evaluation and titration of medications. She remains agitated in spite of increasing antipsychotics and benzodiazepines. * Constipation - receiving senna docusate and when necessary milk of magnesia. No currently documented bowel movement since admission. Medication administration is difficult due to patient's agitation and combativeness. * Confusion - she remains confused and disoriented with progressive dementia. Psychiatry uptitrating Seroquel but may require additional medications. Discussed discharge plans with therapist, Radha, and per her discussion with [facility], she would be able to return to that facility if no more appropriate psychiatric placement were able to be found, once her medications have been optimized. She would be appropriate for hospice services to provide an extra layer of support if goals were compatible. Palliative care will continue to follow the patient during hospital course as condition evolves, to assist patient/decision-maker with understanding of their medical conditions, weighing benefits/burdens of treatment options, for clarification of goals of treatment. Additionally will assist with any symptoms of palliative concern. . Demetria Flores Dec 28, 2016 12:15
--- NOTE | 2016-12-28 14:32 | HHI.PR ---
Subjective Remarks Follow-up on patient with hypertension and hypothyroidism. Patient seen and examined today. Patient appears more calm today. She denies any complaints of chest pain or SOB. Discussed with sitter, only eating about 25% of meals. Multiple incontinent voids. (+)BM yesterday. Per nursing staff, patient spits out food and medicine. She holds food in the back of her mouth. Objective Vitals Vital Signs Date Time Temp Pulse Resp B/P Pulse Ox O2 Delivery O2 Flow Rate FiO2 12/28/16 06:29 83 16 155/75 97 12/27/16 20:00 106 172/72 I/O 12/27/16 12/27/16 12/27/16 12/28/16 12/28/16 12/28/16 07:00 15:00 23:00 07:00 15:00 23:00 Intake Total 1085 ml 630 ml 0 ml 0 ml Balance 1085 ml 630 ml 0 ml 0 ml Intake Oral 50 ml 0 ml 0 ml 0 ml IV Total 1035 ml 630 ml # Voids 5 0 Result Diagram: 12/25/16 0541 12/25/16 0541 Objective Remarks GENERAL: Underweight, cachectic-appearing elderly female. She is in soft wrist restraints. Calm at present. Confused. SKIN: Warm and dry. No rash. HEAD: Normocephalic. Atraumatic. CARDIOVASCULAR: Regular rate and rhythm. S1, S2 noted. No murmur appreciated. RESPIRATORY: No accessory muscle use. Clear to auscultation. Breath sounds equal bilaterally. GASTROINTESTINAL: Abdomen soft, non-tender, nondistended. Normoactive bowel sounds x4. MUSCULOSKELETAL: No obvious deformities. Extremities without clubbing, cyanosis , or edema. NEUROLOGICAL: Confused. Medications and IVs Current Medications Medications (Trade) Dose Ordered Sig/Tera Route Start Time Stop Time Status Last Admin (Ativan) 0.5 mg Q12H PRN PO 12/24/16 12:45 (Ativan Inj) 0.5 mg Q12H PRN IM 12/24/16 12:45 12/27/16 20:16 (Tylenol) 650 mg Q4H PRN PO 12/24/16 12:45 (Milk Of Magnesia Liq) 30 ml DAILY PRN PO 12/24/16 12:45 (Mag-Al Plus Susp Liq) 30 ml Q6H PRN PO 12/24/16 12:45 (Desyrel) 50 mg HS PRN PO 12/24/16 12:45 (Prinivil) 5 mg DAILY PO 12/24/16 12:45 Hold 12/25/16 09:00 (Radha-Colace) 2 tab DAILY PO 12/25/16 09:00 12/27/16 09:00 (Catapres) 0.1 mg Q6H PRN PO 12/24/16 17:00 Levothyroxine Sodium 125 mcg 125 mcg DAILY@0600 PO 12/26/16 06:00 12/28/16 06:34 (NS 1000 ml Inj) 1,000 ml @ 50 mls/hr Q20H IV 12/26/16 13:00 12/28/16 05:00 (Lovenox Inj) 40 mg Q24H SQ 12/26/16 14:00 12/27/16 14:00 (Miralax) 17 gm DAILY PO 12/28/16 09:00 (KlonoPIN) 1 mg BID PO 12/28/16 21:00 (SEROquel) 100 mg HS PO 12/28/16 21:00 A/P Problem List: (1) Hypothyroidism ICD Code: E03.9 Status: Acute (2) Dementia with behavioral disturbance ICD Code: F03.91 Status: Acute (3) HTN (hypertension) ICD Code: I10 Status: Acute (4) Senile dementia with psychosis ICD Code: F02.81 Status: Acute (5) Constipation ICD Code: K59.00 Status: Chronic Assessment and Plan 86-year-old female with hypertension, dementia, and hypothyroidism admitted to med psych under [facility] act. Dementia, Alzheimer type with behavioral disturbance Management per psychiatric team Poor by mouth intake Malnourished, BMI 15.7 Failure to thrive Ate very small amount of lunch, approx 25% Continue IVF hydration Palliative care consult requested, appreciate their assistance. Per their assessment, patient not a good candidate for artificial feeding tube due to likelihood patient would pull it out. Per Radha therapist, patients refuses any feeding tube placement. Discussed with COLEEN Bates of palliative care - patient meets criteria for care center. Will consult Hospice. Speech therapy swallow evaluation requested Hypertension May resume Lisinopril with elevation in BP measurements Encourage fluids When necessary clonidine for breakthrough hypertension Continue to monitor BP and adjust treatment as indicated Hypothyroidism Continue levothyroxine to 125 g daily Follow up as an outpatient with retesting in 2-3 months Chronic constipation (+)BM yesterday after suppository given continue with Radha Colace daily follow clinically for bowel movements DVT prophylaxis Patient spends much of her time in bed Heparin sq BID Patient is DNR Discussed with nursing staff, patient and Dr. Keyes Problem Qualifiers (1) Dementia with behavioral disturbance: Qualified Code: G30.8 - Alzheimer's dementia with behavioral disturbance, unspecified timing of dementia onset Jennifer You Dec 28, 2016 14:32
[2016-12-28] MEDS: ENOXAPARIN SODIUM 40 MG/0.4 ML SYRINGE SQ SCH (15:50)
[2016-12-28 18:01] VITALS: BP 164/98; PULSE 105; RESP 16; TEMP 98.2; O2SAT 98
[2016-12-28] MEDS: LORazepam 2 MG/ML VIAL IM PRN (20:48)
[2016-12-29] MEDS: SODIUM CHLOR 0.9% 1000 ML INJ 1,000 ML IV SCH ×2 (01:00→21:00)
[2016-12-29 04:26] VITALS: BP 153/71; PULSE 91; RESP 15; TEMP 97.4; O2SAT 98
[2016-12-29] MEDS: LEVOTHYROXINE SODIUM 125 MCG TAB PO SCH (06:00)
[2016-12-29] MEDS: clonazePAM 0.5 MG TAB PO SCH ×2 (09:00→21:00)
[2016-12-29] MEDS: POLYETHYLENE GLYCOL 17 GM PKG PO SCH (09:00)
[2016-12-29] MEDS: DOCUSATE SODIUM 50 MG/SENNA 8.6 MG TAB PO SCH (09:00)
[2016-12-29] MEDS: LISINOPRIL 5 MG TAB PO SCH (09:00)
--- NOTE | 2016-12-29 09:44 | HHI.PYPN ---
Subjective Remarks Patient seen at bedside and case discussed with nurse. Patient continues to show strong evidence of sundowning behavior and becomes agitated and violent with staff were trying to care for her. She is still cursing at staff members frequently and appears to have little understanding for those who are trying to help her. Review of Systems ROS Limitations: Clinical Condition Objective Alert: Yes [place]: Person Mood: Agitated Affect: Labile Memory Intact: Immediate Hallucinations: Other Delusions: Yes Delusion Type: Paranoid Suicidal: Ideation (not) Homicidal: Ideation Insight/Judgment Poor Vitals/IOs Vital Signs Date Time Temp Pulse Resp B/P Pulse Ox O2 Delivery O2 Flow Rate FiO2 12/29/16 04:26 97.4 91 15 153/71 98 Intake and Output 12/28/16 12/28/16 12/29/16 08:00 16:00 00:00 Intake Total 0 ml 0 ml Balance 0 ml 0 ml Assessment & Plan Problem List: (1) Dementia in other diseases classified elsewhere with behavioral disturbance ICD Code: F02.81 (2) Dementia with behavioral disturbance ICD Code: F03.91 Assessment & Plan Estimated LOS: 7 days this physician will have to alter medications to enhance the patient's physical and emotional and behavioral stability in the late afternoon and evening. This will require treatment with antipsychotic medications despite the possible risk of side effects. This physician plans a combination of clonazepam and antipsychotic medication to help stabilize the patient's physical aggression towards others and herself. Justification for Cont. Inpt. Patient is unable to care for herself and will decompensate further at a lower level of care. Request HC Surrog/Guard Advoc?: Yes Problem Qualifiers (1) Dementia with behavioral disturbance: Qualified Code: G30.8 - Alzheimer's dementia with behavioral disturbance, unspecified timing of dementia onset Mina Wyatt MD Dec 29, 2016 09:44
--- NOTE | 2016-12-29 10:19 | HHI.PR ---
Subjective Remarks Follow-up on patient with hypertension and hypothyroidism. Patient seen and examined today. She is lying in hospital bed. Severe dementia. Appears to be comfortable at present. She continues to eat very little if anything at all. Swallow evaluation scheduled for today. Objective Vitals Vital Signs Date Time Temp Pulse Resp B/P Pulse Ox O2 Delivery O2 Flow Rate FiO2 12/29/16 04:26 97.4 91 15 153/71 98 12/28/16 18:01 98.2 105 16 164/98 98 I/O 12/28/16 12/28/16 12/28/16 12/29/16 12/29/16 12/29/16 07:00 15:00 23:00 07:00 15:00 23:00 Intake Total 0 ml 0 ml Balance 0 ml 0 ml Intake Oral 0 ml 0 ml # Voids 0 4 2 Result Diagram: 12/25/16 0541 12/25/16540 Objective Remarks GENERAL: Underweight, cachectic-appearing elderly female. She is in soft wrist restraints. Lying in hospital bed. Calm. Appears comfortable. SKIN: Warm and dry. No rash. HEAD: Normocephalic. Atraumatic. CARDIOVASCULAR: Regular rate and rhythm. S1, S2 noted. No murmur appreciated. RESPIRATORY: No accessory muscle use. Clear to auscultation. Breath sounds equal bilaterally. GASTROINTESTINAL: Abdomen soft, non-tender, nondistended. Normoactive bowel sounds x4. MUSCULOSKELETAL: No obvious deformities. Extremities without clubbing, cyanosis , or edema. NEUROLOGICAL: Confused. Medications and IVs Current Medications Medications (Trade) Dose Ordered Sig/Tera Route Start Time Stop Time Status Last Admin (Ativan) 0.5 mg Q12H PRN PO 12/24/16 12:45 (Ativan Inj) 0.5 mg Q12H PRN IM 12/24/16 12:45 12/28/16 20:48 (Tylenol) 650 mg Q4H PRN PO 12/24/16 12:45 (Milk Of Magnesia Liq) 30 ml DAILY PRN PO 12/24/16 12:45 (Mag-Al Plus Susp Liq) 30 ml Q6H PRN PO 12/24/16 12:45 (Desyrel) 50 mg HS PRN PO 12/24/16 12:45 (Prinivil) 5 mg DAILY PO 12/24/16 12:45 12/25/16 09:00 (Radha-Colace) 2 tab DAILY PO 12/25/16 09:00 12/27/16 09:00 (Catapres) 0.1 mg Q6H PRN PO 12/24/16 17:00 Levothyroxine Sodium 125 mcg 125 mcg DAILY@0600 PO 12/26/16 06:00 12/28/16 06:34 (NS 1000 ml Inj) 1,000 ml @ 50 mls/hr Q20H IV 12/26/16 13:00 12/29/16 01:00 (Lovenox Inj) 40 mg Q24H SQ 12/26/16 14:00 12/28/16 15:50 (Miralax) 17 gm DAILY PO 12/28/16 09:00 (KlonoPIN) 1 mg BID PO 12/28/16 21:00 (SEROquel) 100 mg HS PO 12/28/16 21:00 A/P Problem List: (1) Hypothyroidism ICD Code: E03.9 Status: Acute (2) Dementia with behavioral disturbance ICD Code: F03.91 Status: Acute (3) HTN (hypertension) ICD Code: I10 Status: Acute (4) Senile dementia with psychosis ICD Code: F02.81 Status: Acute (5) Constipation ICD Code: K59.00 Status: Chronic Assessment and Plan 86-year-old female with hypertension, dementia, and hypothyroidism admitted to med psych under [facility] act. Dementia, Alzheimer type with behavioral disturbance Management per psychiatric team Poor by mouth intake Malnourished, BMI 15.7 Failure to thrive Eating very little Continue IVF hydration Palliative care consult requested, appreciate their assistance. Per their assessment, patient not a good candidate for artificial feeding tube due to likelihood patient would pull it out. Per Radha therapist, patients refuses any feeding tube placement. Discussed with COLEEN Bates of palliative care - patient meets criteria for care center. Will consult Hospice. Speech therapy swallow evaluation requested/pending Hypertension May resume Lisinopril with elevation in BP measurements Encourage fluids When necessary clonidine for breakthrough hypertension Continue to monitor BP and adjust treatment as indicated Hypothyroidism Continue levothyroxine to 125 g daily Follow up as an outpatient with retesting in 2-3 months Chronic constipation last BM 12/27 continue with Radha Colace daily follow clinically for bowel movements DVT prophylaxis Patient spends much of her time in bed Heparin sq BID Patient is DNR Discussed with nursing staff, patient and Dr. Keyes Problem Qualifiers (1) Dementia with behavioral disturbance: Qualified Code: G30.8 - Alzheimer's dementia with behavioral disturbance, unspecified timing of dementia onset Jennifer You Dec 29, 2016 10:19 Jennifer You Dec 29, 2016 10:19
--- NOTE | 2016-12-29 11:20 | HHI.PYPN ---
Subjective Remarks Pt has reached max benefit from this hospitalization. believes she should be doing better but pt. has severe dementia and is likely to become more cognitively disabled. Review of Systems ROS Limitations: Clinical Condition Objective Alert: No [place]: Person Mood: Agitated Affect: Labile Memory Intact: Comment (no memory function discernable except remaining language.) Hallucinations: Other Delusions: Yes Delusion Type: Paranoid Suicidal: Ideation (not) Homicidal: Ideation (nonsensical remarks) Insight/Judgment poor Vitals/IOs Vital Signs Date Time Temp Pulse Resp B/P Pulse Ox O2 Delivery O2 Flow Rate FiO2 12/29/16 04:26 97.4 91 15 153/71 98 Intake and Output 12/28/16 12/28/16 12/29/16 08:00 16:00 00:00 Intake Total 0 ml 0 ml Balance 0 ml 0 ml Assessment & Plan Problem List: (1) Dementia in other diseases classified elsewhere with behavioral disturbance ICD Code: F02.81 (2) Dementia with behavioral disturbance ICD Code: F03.91 Assessment & Plan Estimated LOS: 0-[address] Justification for Cont. Inpt. Will decomp further without care. Request HC Surrog/Guard Advoc?: Yes Problem Qualifiers (1) Dementia with behavioral disturbance: Qualified Code: G30.8 - Alzheimer's dementia with behavioral disturbance, unspecified timing of dementia onset Mina Wyatt MD Dec 29, 2016 11:20
--- NOTE | 2016-12-29 11:27 | HHI.DS ---
Psychiatry Discharge Summary Inpatient Psychiatric care?: Yes Advance Directive: No Reason Not Provided: Due to Patient Condition Mental Health AdvanceDirective: No Health Care Proxy: No Admission Admission Date Dec 24, 2016 at 12:45 Admission Diagnosis: (1) Dementia in other diseases classified elsewhere with behavioral disturbance ICD Code: F02.[address] Wyatt's H&P: This is an 86-year-old female who is being [place] acted for violence towards staff at her jail/rehabilitation facility. The patient is a very poor historian. She has a history of multiple medical problems including cardiac disease and thyroid disease. Apparently she was repeatedly physically violent towards staff yesterday. The patient does not have any knowledge or memory of this at the present time. In fact, she is unable to communicate well. She has both word finding difficulty as well as memory deficits and pseudo-bulbar affect. At this time, the patient is requiring a sitter and soft restraints in the emergency department. This physician spoke with the patient's nurse about her current behavior, which continues to be confused and agitated and violent towards others. Patient is unable to reasonably follow requests or directions. She is disoriented to time, place and situation. She does come across as paranoid, believing that staff members here at the hospital are trying to harm her in some way. On my examination today: Patient seen and examined. Chart reviewed. Case discussed with nursing staff who reports patient has struggled with ongoing episodes of agitation in the setting of her dementia while on the inpatient psychiatric unit. On my examination today, the patient is disoriented and quite confused. She appears somewhat internally preoccupied and at one point says "father please help me." No sarahy delusional material. Exhibits utilization behavior. No issues with mood noted. No evidence side effects from medications. No physical complaints. Psychiatric interview is limited because of patient's degree of cognitive impairment, and I cannot obtain any past psychiatric, family, chemical dependency or social history from this patient at this time for the same reason. Tobacco Use In Past 30 Days: Refused To Answer Alcohol Use: Never Hospital Course Patient managed medically because of endstage dementia with behavioral disturbance. Meds adjusted to allow pt. to be cared for. Husb not satisfied, in this physician's opinion, because pt's cognitive status cont to decline. Results Blood Pressure 153 / 71 Vital Signs Date Time Temp Pulse Resp B/P Pulse Ox O2 Delivery O2 Flow Rate FiO2 12/29/16 04:26 97.4 91 15 153/71 98 Laboratory Results Test 12/25/16 05:41 Hemoglobin A1c 5.4 % (4.3-6.0) Triglycerides Level 106 MG/DL (42-150) Cholesterol Level 278 MG/DL (120-200) LDL Cholesterol 171 MG/DL (0-99) HDL Cholesterol 85.8 MG/DL (40.0-60.0) Summary of Procedures none Pending results at discharge: No Medications # of Antipsychotic meds at D/C: 1 Appropriate >1 Antipsych meds?: 1 Approp Antipsych med options 1 - Minimum of three failed multiple trials of monotherapy. 2 - Documented plan to taper to monotherapy due to previous use of multiple meds OR cross-taper in progress at D/C. 3 - Documentation of augmentation of Clozapine. 4 - Justification other than those listed in allowable values 1-3, document here : Discharge Discharge Date: Dec 29, 2016 Discharge Diagnosis: (1) Dementia in other diseases classified elsewhere with behavioral disturbance ICD Code: F02.81 Mental Status Exam at Disch Alert at times but otherwise has very little cognitive abilities. Not agitated or violent. Pt Condition on Discharge: Stable Discharge Disposition: Discharge to SNF Discharge Instructions Diet Instructions: As Tolerated, No Restrictions, Soft Diet Activities you can perform: See Additionl Instruction (needs assistance with all activities) Discharge Time <= 30 minutes Discharge/Advance Care Plan Health Problems: (1) Dementia in other diseases classified elsewhere with behavioral disturbance (2) Dementia with behavioral disturbance Goals to promote your health * To prevent worsening of your condition and complications * To maintain your health at the optimal level Directions to meet your goals Take your medications as prescribed Follow your dietary instruction Follow activity as directed Keep your appointments as scheduled Take your immunizations and boosters as scheduled If your symptoms worsen call your PCP, if no PCP go to Urgent Care Center or Emergency Room For 14/02 questions related to your inpatient stay or results of tests pending at discharge, please contact Dr. Mina Wyatt at Smoking is Dangerous to Your Health. Avoid second hand smoking Mina Wyatt MD Dec 29, 2016 11:27
[2016-12-29] MEDS ORDERED: CLON.5 PO (11:30)
[2016-12-29] MEDS ORDERED: LISI-519 PO (11:30)
[2016-12-29] MEDS ORDERED: LEVO.125 PO (11:30)
[2016-12-29] MEDS ORDERED: ENOX40P SQ (11:30)
[2016-12-29] MEDS ORDERED: QUET1TAB7 PO (11:31)
[2016-12-29] MEDS: ENOXAPARIN SODIUM 40 MG/0.4 ML SYRINGE SQ SCH (14:14)
[2016-12-29 20:30] VITALS: BP 139/63; PULSE 99; RESP 16
[2016-12-29] MEDS: QUEtiapine FUMARATE 25 MG TAB PO SCH (21:00)
[2016-12-30] MEDS: LEVOTHYROXINE SODIUM 125 MCG TAB PO SCH (05:59)
[2016-12-30 06:39] VITALS: BP 109/66; PULSE 89; RESP 16
[2016-12-30] MEDS: SODIUM CHLOR 0.9% 1000 ML INJ 1,000 ML IV SCH (07:47)
[2016-12-30] MEDS: POLYETHYLENE GLYCOL 17 GM PKG PO SCH (07:47)
[2016-12-30] MEDS: LISINOPRIL 5 MG TAB PO SCH (07:47)
[2016-12-30] MEDS: DOCUSATE SODIUM 50 MG/SENNA 8.6 MG TAB PO SCH (07:47)
[2016-12-30] MEDS: clonazePAM 0.5 MG TAB PO SCH (08:49)
[2016-12-30] MEDS ORDERED: BISACODYL 10 MG SUPP RECTAL ONE (10:15)
--- NOTE | 2016-12-30 10:39 | HHI.PYPN ---
Subjective Remarks Patient is a placement issue at this point. Review of Systems ROS Limitations: Clinical Condition Objective Alert: Yes [facility]: Person Mood: Calm Affect: Labile Memory Intact: Comment (no memory function discernable except remaining language.) Hallucinations: Other Delusions: Yes Delusion Type: Paranoid Suicidal: Ideation (not) Homicidal: Ideation (nonsensical remarks) Insight/Judgment Impaired but baseline. Vitals/IOs Vital Signs Date Time Temp Pulse Resp B/P Pulse Ox O2 Delivery O2 Flow Rate FiO2 12/30/16 06:39 89 16 109/66 12/29/16 04:26 97.4 98 Intake and Output 12/29/16 12/29/16 12/30/16 08:00 16:00 00:00 Intake Total 1085 ml 0 ml Balance 1085 ml 0 ml Assessment & Plan Problem List: (1) Dementia in other diseases classified elsewhere with behavioral disturbance ICD Code: F02.81 (2) Dementia with behavioral disturbance ICD Code: F03.91 Assessment & Plan Estimated LOS: 1-3 days placement issue Justification for Cont. Inpt. Placement issue Request HC Surrog/Guard Advoc?: Yes Problem Qualifiers (1) Dementia with behavioral disturbance: Qualified Code: G30.8 - Alzheimer's dementia with behavioral disturbance, unspecified timing of dementia onset Mina Wyatt MD Dec 30, 2016 10:39
--- NOTE | 2016-12-30 10:51 | HHI.PR ---
Subjective Remarks Follow-up on patient with hypertension and hypothyroidism. Patient seen and examined today. Patient is sedated. Appears comfortable. Still in soft wrist restraints. Swallow evaluation completed. Sitter reports she ate some of her breakfast. Objective Vitals Vital Signs Date Time Temp Pulse Resp B/P Pulse Ox O2 Delivery O2 Flow Rate FiO2 12/30/16 06:39 89 16 109/66 12/29/16 20:30 99 16 139/63 I/O 12/29/16 12/29/16 12/29/16 12/30/16 12/30/16 12/30/16 07:00 15:00 23:00 07:00 15:00 23:00 Intake Total 1085 ml 0 ml Balance 1085 ml 0 ml Intake Oral 50 ml 0 ml IV Total 1035 ml # Voids 2 2 3 Result Diagram: 12/25/16 0541 Objective Remarks GENERAL: Underweight, cachectic-appearing elderly female. She is in soft wrist restraints. Lying in hospital bed. Sedated. Appears comfortable. SKIN: Warm and dry. No rash. HEAD: Normocephalic. Atraumatic. CARDIOVASCULAR: Regular rate and rhythm. S1, S2 noted. No murmur appreciated. RESPIRATORY: No accessory muscle use. Clear to auscultation. Breath sounds equal bilaterally. GASTROINTESTINAL: Abdomen soft, non-tender, nondistended. Normoactive bowel sounds x4. MUSCULOSKELETAL: No obvious deformities. Extremities without clubbing, cyanosis , or edema. NEUROLOGICAL: Sedated. Medications and IVs Current Medications Medications (Trade) Dose Ordered Sig/Tera Route Start Time Stop Time Status Last Admin (Ativan) 0.5 mg Q12H PRN PO 12/24/16 12:45 (Ativan Inj) 0.5 mg Q12H PRN IM 12/24/16 12:45 12/28/16 20:48 (Tylenol) 650 mg Q4H PRN PO 12/24/16 12:45 (Milk Of Magnesia Liq) 30 ml DAILY PRN PO 12/24/16 12:45 (Mag-Al Plus Susp Liq) 30 ml Q6H PRN PO 12/24/16 12:45 (Desyrel) 50 mg HS PRN PO 12/24/16 12:45 (Prinivil) 5 mg DAILY PO 12/24/16 12:45 12/25/16 09:00 (Radha-Colace) 2 tab DAILY PO 12/25/16 09:00 12/27/16 09:00 (Catapres) 0.1 mg Q6H PRN PO 12/24/16 17:00 Levothyroxine Sodium 125 mcg 125 mcg DAILY@0600 PO 12/26/16 06:00 12/30/16 05:59 (NS 1000 ml Inj) 1,000 ml @ 50 mls/hr Q20H IV 12/26/16 13:00 12/29/16 21:00 (Lovenox Inj) 40 mg Q24H SQ 12/26/16 14:00 12/29/16 14:14 (Miralax) 17 gm DAILY PO 12/28/16 09:00 (KlonoPIN) 1 mg BID PO 12/28/16 21:00 12/30/16 08:49 (SEROquel) 100 mg HS PO 12/28/16 21:00 12/29/16 21:00 A/P Problem List: (1) Hypothyroidism ICD Code: E03.9 Status: Acute (2) Dementia with behavioral disturbance ICD Code: F03.91 Status: Acute (3) HTN (hypertension) ICD Code: I10 Status: Acute (4) Senile dementia with psychosis ICD Code: F02.81 Status: Acute (5) Constipation ICD Code: K59.00 Status: Chronic Assessment and Plan 86-year-old female with hypertension, dementia, and hypothyroidism admitted to med psych under [place] act. Dementia, Alzheimer type with behavioral disturbance Management per psychiatric team Reportedly, patient accepted back at her previous facility however, has yet to consent. Poor by mouth intake Malnourished, BMI 15.7 Failure to thrive Eating very little Palliative care consult requested, appreciate their assistance. Per their assessment, patient not a good candidate for artificial feeding tube due to likelihood patient would pull it out. Per Radha therapist, patients refuses any feeding tube placement. Discussed with COLEEN Bates of palliative care - patient meets criteria for care center. Will consult Hospice. Speech therapy swallow evaluation completed - recommends puree diet with thin liquids Hypertension Lisinopril on hold due to low BP Encourage fluids When necessary clonidine for breakthrough hypertension Continue to monitor BP and adjust treatment as indicated Hypothyroidism Continue levothyroxine to 125 g daily Follow up as an outpatient with retesting in 2-3 months Chronic constipation last BM 12/27 Dulcolax suppository continue with Radha Colace daily - patient refusing follow clinically for bowel movements DVT prophylaxis Patient spends much of her time in bed Lovenox sq Patient is DNR Discussed with nursing staff, patient and Dr. Keyes Problem Qualifiers (1) Dementia with behavioral disturbance: Qualified Code: G30.8 - Alzheimer's dementia with behavioral disturbance, unspecified timing of dementia onset Jennifer You Dec 30, 2016 10:51
[2016-12-30] MEDS: ENOXAPARIN SODIUM 40 MG/0.4 ML SYRINGE SQ SCH (12:57)
--- NOTE | 2016-12-30 14:33 | HHI.HCPN ---
Reason for visit a. To assist with evaluation and management of symptoms including: Agitation , constipation, confusion. b. To assist medical decision maker(s) with: better understanding of current medical conditions; weighing benefits/burdens of medical treatment options; making medical treatment decisions. Subjective/Interval History Saw patient in conjunction with today, stable from psychiatry/medical standpoint for discharge however unable to return to [place] due to previously disruptive behavior and has accepted hospice care center admission. Spoke with the with hospice nurse, Aye Madrid, at length regarding the patient's impending due to dementia, not eating or drinking. He is struggling with that diagnosis and states he wishes to continue to believe that she will recover however, I was exceedingly plain in explaining to him that she is going to , likely within days to weeks. She remains confused, restrained, sedated. She is quiet, no longer shouting and cursing. She continues to take in bites and sips when fed but is unable to feed herself. She frequently pockets food. Her vital signs remained stable with blood pressure 109/66, heart rate 89, respiratory rate 16, oxygen saturation 98% on room air afebrile. She continues to receive normal saline at 50 mL an hour for rehydration. She is receiving clonazepam 1 mg by mouth twice a day, Seroquel 100 mg by mouth daily at bedtime and lorazepam 0.5 mg every 12 when necessary for anxiety. Speech therapy has evaluated however due to patient 's severe dementia the patient is unable to follow commands to complete an oral motor assessment. She remains on a pured diet with thin liquids at this time, with minimal by mouth intake. Advance Directives Living Will: Never completed Health Care Surrogate: Never completed Durable Power of Wirer Passenger Car: Never completed Objective Vital Signs Date Time Temp Pulse Resp B/P Pulse Ox O2 Delivery O2 Flow Rate FiO2 12/30/16 06:39 89 16 109/66 12/29/16 20:30 99 16 139/63 Intake & Output 12/30/16 12/30/16 07:00 19:00 Intake Total 0 ml 240 ml Balance 0 ml 240 ml Intake Oral 0 ml 240 ml # Voids 3 Physical Exam CONSTITUTIONAL/GENERAL: This is an cachectic patient, awake, mildly sedated, in soft wrist restraints. CARDIOVASCULAR: Regular rate and rhythm without murmurs, gallops, or rubs. No JVD. Peripheral pulses symmetric. RESPIRATORY/CHEST: Symmetric, unlabored respirations. Clear to auscultation. Breath sounds equal bilaterally. No wheezes, rales, or rhonchi. GASTROINTESTINAL: Abdomen soft, nondistended. Bowel sounds present. GENITOURINARY: Without palpable bladder distension. MUSCULOSKELETAL: Extremities without clubbing, cyanosis, or edema. No mottling or clubbing. NEUROLOGICAL: Confused, oriented to self, moves all extremities. PSYCHIATRIC: Calm, not interactive, behavior controlled on current medications, soft wrist restraints. Diagnostic Tests Result Diagram: 12/25/16 0541 Assessment and Plan Disease Oriented Problem List: (1) Dementia with behavioral disturbance (2) Hypothyroidism (3) HTN (hypertension) Symptom Scale: (1) Constipation 0-10 Scale: Unable to quantify (2) Agitation 0-10 Scale: Unable to quantify (3) Confusion 0-10 Scale: Unable to quantify Pertinent Non-Medical Issues Psychosocial:She was born in [facility] where she met her and lived there for 48 years prior to moving to [place] 36 years ago. 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 They have no children, no other living family. Per her she has no spiritual affiliation. Spiritual: No spiritual affiliation. Legal: Her would be her proxy decision maker. Ethical issues impacting care: . Important Contacts - Sonny Johnson Prognosis Her prognosis is poor. She has severe dementia with behavioral disturbances interfering with her basic ability to feed and care for herself. She is cachectic with a BMI of 16.9, 34.1 kg, 58 inches tall, which has declined from her previous admission in October 2016 where her weight was 40.5 kg. Due to her agitation and dementia she would be a poor candidate for artificial feeding tube , due to the likelihood that she would pull it out. Code Status: No Code Plan PLAN: Legal decision maker: - Sonny Johnson Goals: Conservative. CODE STATUS: DO NOT RESUSCITATE SYMPTOMS: * Agitation - she is requiring antipsychotic medications, restraints and a sitter for her own protection. Per her this is her baseline. I did discuss this with [place] where she currently resides and they state that this is chronically her behavior to include violence against staff members from time to time. She is admitted under [place] act for psychiatry evaluation and titration of medications. She is no longer agitated with increase in antipsychotics and benzodiazepines. * Constipation - receiving senna docusate and when necessary milk of magnesia. No currently documented bowel movement since admission. Medication administration is difficult due to patient's dementia and refusal of meds. * Confusion - she remains confused and disoriented with progressive dementia. Psychiatry uptitrating Seroquel but may require additional medications. Discussed discharge plans with therapist, Radha, and per her discussion with [place], she would not be able to return to that facility. She would be appropriate for hospice services to provide an extra layer of support. These goals are compatible with the 's wishes and she will be transferred to the [facility] today for comfort measures and symptom management of agitation, confusion, combativeness. Palliative care will continue to follow the patient during hospital course as condition evolves, to assist patient/decision-maker with understanding of their medical conditions, weighing benefits/burdens of treatment options, for clarification of goals of treatment. Additionally will assist with any symptoms of palliative concern. . Demetria Flores Dec 30, 2016 14:33
[2016-12-30] MEDS: LORazepam 2 MG/ML VIAL IM PRN (14:47)
== END 2016-12-30 15:00 | disposition hospice, home (50) | DRG 57 ==
LOC: NEPD 13:40 → NEDA 12-24 12:45 → H4EA 12-24 14:30
PROVIDERS: ADMIT Psychiatry & Neurology Psychiatry; ATTEND Psychiatry & Neurology Psychiatry
DX: G30.9 Alzheimer's disease, unspecified (principal); R64 Cachexia; E46 Unspecified protein-calorie malnutrition; F05 Delirium due to known physiological condition; R62.7 Adult failure to thrive; Z68.1 Body mass index [BMI] 19.9 or less, adult; F02.81 Dementia in other diseases classified elsewhere, unspecified severity, with behavioral disturbance; I10 Essential (primary) hypertension; E03.9 Hypothyroidism, unspecified; F41.9 Anxiety disorder, unspecified; K59.09 Other constipation; F17.210 Nicotine dependence, cigarettes, uncomplicated; Z66 Do not resuscitate; Z51.5 Encounter for palliative care; Z78.1 Physical restraint status
CPT/HCPCS: 80053; 80061; 80307; 81001; 83036; 83735; 84436; 84443; 84481; 85025; 93005; 99285; J1650; J2060; J7030